=== PATIENT | female | born 1980 | race Caucasian/White ===

== ENCOUNTER 2016-07-13 02:09 | Inpatient (IN) | payer MEDICAID ==
[~2016-07-13] VITALS: Ht 157.5 cm; Wt 64.4 kg
[2016-07-13] VITALS (7 sets, daily range): BP systolic 121–149; BP diastolic 75–97; PULSE 83–100; RESP 16–20; TEMP 97.1–98.9; O2SAT 94–99
--- NOTE | 2016-07-13 02:15 | NUR ---
Patient to ER bed 5 to gown for evaluation. Side rails up.
--- NOTE | 2016-07-13 02:16 | NUR ---
Pt in bed 5 with c/o nausea x 3 days. also c/o generalized pain and withdrawal symptoms. Dr Frida gamez.
[2016-07-13] MEDS ORDERED: NACL 0.9% 1,000 ML IV ONE (02:17)
--- NOTE | 2016-07-13 02:19 | NUR ---
ER at bedside examining patient.
[2016-07-13] MEDS ORDERED: MAG HYDROX/AL HYDROX/SIMETH 30 ML, BELLADONNA ALKALOIDS/PHENOBARB 10 ML, LIDOCAINE VISC... PO ONE ×3 (02:30)
[2016-07-13] MEDS ORDERED: ONDANSETRON HCL 4 MG/2 ML VIAL IVP ONE (02:30)
[2016-07-13] MEDS ORDERED: HYDROmorphone 2 MG/ML VIAL IM ONE (02:45)
[2016-07-13 02:50] LABS: BILIRUBIN,URINE 2+ (NEGATIVE); BLOOD, URINE 1+ (NEGATIVE); CLARITY/URINE CLOUDY (CLEAR); COLOR,URINE YELLOW (YELLOW); GLUCOSE,URINE NEGATIVE (NEGATIVE); KETONES,URINE 1+ (NEGATIVE); LEUKOCYTE ESTERASE ,URINE 1+ (NEGATIVE); NITRITE, URINE NEGATIVE (NEGATIVE); PROTEIN URINE 2+ (NEGATIVE)
[2016-07-13 02:53] LABS: UROBILINOGEN,URINE >=8 (0.2-1.0)
--- NOTE | 2016-07-13 02:55 | NUR ---
# 22 gauge angiocath placed to left wrist. Use of asceptic technique. Opsite placed over site. Blood return noted. Blood for lab drawn from site. Flushed with 10 cc of normal saline. No evidence of infiltration noted. Patient tolerated well.
[2016-07-13 02:56] LABS: BASOPHILS % (AUTO) 0.6 % (0.0-2.0); CALCIUM 8.8 mg/dL (8.4-11.0); CREATININE 0.85 mg/dL (0.55-1.30); EOSINOPHILS % (AUTO) 0.4 % (0.0-4.0); HEMATOCRIT 37.5 % (36-48); HEMOGLOBIN 12.5 g/dL (12.0-16.0); LYMPHOCYTES # (AUTO) 0.9 K/uL (1.0-5.5); LYMPHOCYTES % (AUTO) 25.3 % (20.5-51.5); MEAN CORPUSCULAR HEMOGLOBIN 29 pg (27-31); MEAN CORPUSCULAR HGB CONC 33 % (32-36); MEAN CORPUSCULAR VOLUME 88 fL (79.0-98.0); MONOCYTES # (AUTO) 0.3 K/uL (0.0-1.0); MONOCYTES % (AUTO) 8.2 % (1.7-9.3); NEUTROPHILS # (AUTO) 2.3 K/uL (1.8-7.7); NEUTROPHILS % (AUTO) 65.5 % (40.0-70.0); PLATELET COUNT (AUTO) 65 K/uL (130-430); POTASSIUM 3.5 mmol/L (3.5-5.1); RED BLOOD CELL COUNT(AUTO) 4.26 MIL/uL (4.2-6.2); RED CELL DISTRIBUTION WIDTH 19.3 % (9.0-15.0); WHITE BLOOD COUNT (AUTO) 3.5 K/uL (4.8-10.8)
[2016-07-13 03:00] LABS: BARBITURATE, URINE NEGATIVE (NEG <=200); BENZODIAZEPINE, URINE POSITIVE (NEG <=150); COCAINE, URINE NEGATIVE (NEG <=150); METHAMPHETAMINES SCREEN,URINE NEGATIVE (NEG <=500); URINE AMPHETAMINE NEGATIVE (NEG <=500); URINE METHADONE POSITIVE (NEG <=200)
[2016-07-13 03:00] LABS: ALBUMIN 4.7 g/dL (3.4-4.8); TOTAL BILIRUBIN 3.2 mg/dL (0.0-1.0); TOTAL PROTEIN, SERUM 8.7 g/dL (6.4-8.3)
[2016-07-13 03:01] LABS: CANNABINOID, URINE NEGATIVE (NEG <=50); OPIATE, URINE POSITIVE (NEG <=100); PHENCYCLIDINE SCREEN,URINE NEGATIVE (NEG <=25); UR TRICYCLIC ANTIDEPRESSANTS NEGATIVE (NEG <=300); URINE OXYCODONE SCREEN NEGATIVE (NEG <=100); URINE PROPOXYPHENE SCREEN NEGATIVE (NEG <=300)
[2016-07-13 03:16] LABS: BACTERIA,URINE MANY /HPF (None Seen); MUCUS,URINE None Seen /LPF (None Seen)
[2016-07-13] MEDS ORDERED: FOLIC ACID 1 MG, THIAMINE HCL 100 MG, MAGNESIUM SULFATE 1 GM, MVI 10 ML in NACL 0.9% 1,... IV ONE (03:30)
[2016-07-13] MEDS ORDERED: LORazepam 2 MG/ML VIAL (FOR ER USE) IVP ONE (03:30)
--- NOTE | 2016-07-13 03:32 | NUR ---
Medication given as per MD ordered tolerated well.
[2016-07-13] MEDS ORDERED: THIAMINE HCL 100 MG/ML VIAL ONE (03:42)
[2016-07-13] MEDS ORDERED: MAGNESIUM SULFATE 1 GM/2 ML VIAL ONE (03:42)
[2016-07-13] MEDS ORDERED: FOLIC ACID 5 MG/ML VIAL IV ONE (03:42)
[2016-07-13] MEDS ORDERED: MVI 10 ML VIAL IV ONE (03:50)
--- NOTE | 2016-07-13 04:19 | NUR ---
Patient will be admitted to care of Dr Faria. Admitted to TELE unit. Will go to room 129 B . Belongings list completed. Summary report printed. Report given at bedside.
--- NOTE | 2016-07-13 04:33 | NUR ---
ADMIT NOTE Received pt from ER to the floor with a diagnosis of ACUTE PANCREATITIS. Admission process initiated. patient oriented to pain management, safety and call light-teach back done.
--- NOTE | 2016-07-13 04:50 | NUR ---
CONSULTATION PAGED PRIORITY: ROUTINE REASON FOR CONSULTATION:PANCREATITIS WAS CONSULT CALLED:Y PERSON WHO WAS NOTIFIED:ZENOBIA CONSULTING PHYSICIAN:SHARYN LIMA (ANSHUL LEE DIRECTOR OF CAREER RESOURCES) MEDICAL REVIEWER SPECIALTY:GI MEDICAL REVIEWER PHONE NUMBER:[phone]
[2016-07-13] MEDS ORDERED: FAMOTIDINE PF 20 MG/2 ML VIAL IVP ONE (06:15)
[2016-07-13] MEDS: LORazepam 2 MG/ML VIAL IVP PRN ×4 (06:17→22:57)
[2016-07-13] MEDS: NORMAL SALINE 5 ML DISP.SYRIN IVF SCH ×3 (06:18→22:08)
[2016-07-13] MEDS: ONDANSETRON HCL 4 MG/2 ML VIAL IVP PRN ×4 (06:53→22:22)
[2016-07-13] MEDS: MORPHINE 4 MG/ML INJ. SYRINGE IVP PRN ×4 (06:54→22:22)
--- NOTE | 2016-07-13 07:30 | NUR ---
OPENING NOTE PATIENT IS LYING IN BED, DROWSY. REPORTS PAIN AND NAUSEA. NO SIGNS OF DISTRESS
[2016-07-13 09:44] LABS: INR 1.1 (0.8-1.2); PROTHROMBIN TIME 11.8 SECS (9.5-12.5)
--- NOTE | 2016-07-13 11:00 | NUR ---
PATIENT IS REPORTING PAIN, MEDICATED FOR PAIN AND NAUSEA.
--- NOTE | 2016-07-13 13:00 | NUR ---
PATIENT IS ASLEEP. REPORTS MILD PAIN WHEN WOKEN FOR ASSESSMENT
--- NOTE | 2016-07-13 14:00 | NUR ---
PATIENT MEDICATED WITH ATIVAN. REPORTING PAIN AND NAUSEA
--- NOTE | 2016-07-13 15:30 | NUR ---
PT NOTED TO HAVE ELEVATED HR, 120-130. WHEN ASSESSED PATIENT WAS SLEEPING. NO SIGNS OF SEIZURE ACTIVITY.
--- NOTE | 2016-07-13 16:00 | NUR ---
PATIENT REPORTS NAUSEA AND PAIN. MEDICATED FOR BOTH
--- NOTE | 2016-07-13 17:58 | NUR ---
PATIENT GIVEN CLEAR LIQUID TRAY. REMAINS VERY LETHARGIC, PALE. REPORTING PAIN.
[2016-07-13] MEDS ORDERED: cefTRIAXone 1 GM in D5W 50 ML IV ONE (18:45)
--- NOTE | 2016-07-13 19:40 | NUR ---
pm notes pt resting with eyes closed but easily arousable. breathing even and unlabored on room air, no s/s of distress at this time. seizure precautions in place, bed in low position, call light within reach. bed alarm on.
[2016-07-13] MEDS ORDERED: cefTRIAXone 1 GM VIAL ONE (20:50)
--- NOTE | 2016-07-13 21:46 | NUR ---
paging MD per house steward/stewardess, Donya, ask MD for blood cultures before antibiotic is given. paging .
[2016-07-13] MEDS: NITROFURANTOIN MONOHYD/M-CRYST 100 MG CAPSULE PO SCH (22:13)
--- NOTE | 2016-07-13 22:33 | NUR ---
new orders stated pt has UTI but okay to draw blood cultures before giving antibiotics. orders in place, pt aware.
[2016-07-14] MEDS: FAMOTIDINE PF 20 MG/2 ML VIAL IVP PRN ×2 (00:33→08:48)
[2016-07-14] MEDS: LORazepam 2 MG/ML VIAL IVP PRN ×5 (01:27→16:49)
--- NOTE | 2016-07-14 02:22 | NUR ---
talking to self per warehouse distribution associate, pt was talking to self. pt stated she had "a very vivid dream." pt now sitting up in bed, made pt comfortable and fixed her blankets. all needs being met, bed alarm on. call light within reach.
[2016-07-14] MEDS: MORPHINE 4 MG/ML INJ. SYRINGE IVP PRN ×3 (02:38→15:44)
[2016-07-14] MEDS: ONDANSETRON HCL 4 MG/2 ML VIAL IVP PRN ×3 (02:38→15:42)
--- NOTE | 2016-07-14 03:25 | NUR ---
agitated pt appeared to be agitated and anxious, stated she wanted to drink juice and go home. reoriented pt to place and reminded her why she is npo. pt stated "oh yeah, im in [place] and my stomach pain hasn't gone away." made pt comfortable. pt now resting. RNKeysha charting outside pt's room. bed alarm on. safety measures in place. call light within reach.
--- NOTE | 2016-07-14 03:50 | NUR ---
REORIENTED PT/ATIVAN PT ASKED IF WE WERE"ACTING NURSES." EXPLAINED TO PT WE ARE A REAL HOSPITAL AND REMINDED HER WHY SHE CAME IN. ATIVAN GIVEN ORDERED FOR AGITATION. FALL RISK PRECAUTIONS IN PLACE, CALL LIGHT WITHIN REACH.
[2016-07-14 03:53] VITALS: BP 153/102; PULSE 110; RESP 18; TEMP 98.8; O2SAT 95
--- NOTE | 2016-07-14 04:48 | NUR ---
Dr. Faria aware of agitation/trying to go home MD ordered Haldol 0.5mg IM now. order read back and verified. order in place.
[2016-07-14] MEDS ORDERED: HALOPERIDOL LACTATE 5 MG/ML VIAL IM ONE (05:00)
[2016-07-14] MEDS: NORMAL SALINE 5 ML DISP.SYRIN IVF SCH ×3 (05:00→21:43)
--- NOTE | 2016-07-14 06:32 | NUR ---
CLOSING NOTES PATIENT IS RESTLESS, AGITATED, AND COMPLAINS OF PAIN. BED ALARM IS ON. PATIENT HAS BEEN MEDICATED. PATIENT REQUIRED ONE TO ONE FOR THE LAST TWO HOURS. SAFETY MEASURES IN PLACE. BED IN LOWEST POSITION, CALL LIGHT WITHIN REACH, WILL GIVE REPORT TO DAY SHIFT NURSE.
--- NOTE | 2016-07-14 07:29 | NUR ---
OPENING NOTE PATIENT IS AWAKE, CONFUSED. EYES WIDE OPEN WITH SLIGHT NYSTAGMUS. PATIENT IS OBSESSING OVER MOVING PARTS ON HER BED AND SAYING SHE NEEDS TO TAKE THEM ALL OFF.
[2016-07-14 07:40] LABS: BASOPHILS % (AUTO) 0.9 % (0.0-2.0); EOSINOPHILS # (AUTO) 0.1 K/uL (0.0-0.4); EOSINOPHILS % (AUTO) 2.2 % (0.0-4.0); HEMOGLOBIN 10.8 g/dL (12.0-16.0); LYMPHOCYTES # (AUTO) 0.9 K/uL (1.0-5.5); LYMPHOCYTES % (AUTO) 31.6 % (20.5-51.5); MEAN CORPUSCULAR HEMOGLOBIN 29 pg (27-31); MEAN CORPUSCULAR HGB CONC 33 % (32-36); MEAN CORPUSCULAR VOLUME 89 fL (79.0-98.0); MONOCYTES # (AUTO) 0.2 K/uL (0.0-1.0); MONOCYTES % (AUTO) 7.7 % (1.7-9.3); NEUTROPHILS # (AUTO) 1.5 K/uL (1.8-7.7); NEUTROPHILS % (AUTO) 57.6 % (40.0-70.0); PLATELET COUNT (AUTO) 51 K/uL (130-430); RED BLOOD CELL COUNT(AUTO) 3.71 MIL/uL (4.2-6.2); RED CELL DISTRIBUTION WIDTH 18.8 % (9.0-15.0); WHITE BLOOD COUNT (AUTO) 2.7 K/uL (4.8-10.8)
--- NOTE | 2016-07-14 07:52 | NUR ---
PATIENT MOVED TO ROOM 121A FOR CLOSER OBSERVATION. ALL BELONGINGS BROUGHT TO NEW BEDSIDE. PATIENT IS CURRENTLY SITTING UP IN BED.
[2016-07-14 08:00] VITALS: BP 154/113; PULSE 118; RESP 22; TEMP 98; O2SAT 98
[2016-07-14 08:12] LABS: ALBUMIN 4.4 g/dL (3.4-4.8); BILIRUBIN,DIRECT 1.4 mg/dL (0.0-0.3); CALCIUM 9.1 mg/dL (8.4-11.0); CREATININE 0.84 mg/dL (0.55-1.30); POTASSIUM 3.2 mmol/L (3.5-5.1); TOTAL BILIRUBIN 2.7 mg/dL (0.0-1.0); TOTAL PROTEIN, SERUM 7.9 g/dL (6.4-8.3)
--- NOTE | 2016-07-14 08:12 | NUR ---
abdominal us in progredd. bp noted to be 154/113. dr kahn paged and immediately returned call. orders for detox antihypertensive protocol given.
[2016-07-14] MEDS: cloNIDine HCL 0.1 MG TABLET PO SCH ×5 (08:15→21:42)
[2016-07-14] MEDS: NITROFURANTOIN MONOHYD/M-CRYST 100 MG CAPSULE PO SCH ×2 (08:50→21:38)
--- NOTE | 2016-07-14 09:48 | NUR ---
PATIENT MEDICATED PER ORDERS. PATIENT OFTEN REACHES OUT IN TO THE AIR TO SEEMINGLY GRAB THINGS. WHEN ASKED WHAT SHE SAW PATIENT REPLIED WITH INCOHERENT MUMBLES. PATIENT DID SAY THAT SHE IS SEEING THINGS. 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
--- NOTE | 2016-07-14 11:00 | NUR ---
PATIENT WAS FOUND REACHING IN TO HER PURSE AND PULLING OUT TRAZADONE. PATIENT STATES SHE NEEDS TO SLEEP. MEDICATIONS REMOVED AND STORED IN PHARMACY PER PROTOCOL. PATIENT IS VERY LETHARGIC, SLURRING HER WORDS AND RARELY OPENS HER EYES WHEN SPEAKING
[2016-07-14 11:23] VITALS: BP 141/73; PULSE 100; RESP 16; TEMP 97.8; O2SAT 96
[2016-07-14 12:00] VITALS: BP 131/91; PULSE 99; RESP 18; TEMP 97; O2SAT 98
--- NOTE | 2016-07-14 12:00 | NUR ---
PATIENT IS SAYING HER IS COMING TO GET HER. HE IS IN [place]
--- NOTE | 2016-07-14 15:30 | NUR ---
PATIENT INSISTED ON PUTTING ON CLOTHES FROM HOME. OFFERED TO WALK W PATIENT AROUND UNIT INSTEAD. WE WALKED THREE LAPS THEN BACK TO ROOM
[2016-07-14 16:00] VITALS: BP 127/88; PULSE 94; RESP 18; TEMP 97.2; O2SAT 97
--- NOTE | 2016-07-14 16:56 | NUR ---
PATIENT MEDICATED FOR ANXIETY. PATIENT GAVE HERSELF A SPONGEBATH. NOW IS BACK IN BED
[2016-07-14] MEDS ORDERED: POTASSIUM CHLORIDE 20 MEQ TAB.PRT.SR PO ONE (17:15)
--- NOTE | 2016-07-14 17:32 | NUR ---
CONSULT PSYCH HALLUCINATIONS DR PERDOMO [phone] S/W MIKE FREEDMAN @[phone]
--- NOTE | 2016-07-14 18:39 | NUR ---
patient is resting quietly in bed. medicated with replacement oral potassium per orders.
[2016-07-14 20:00] VITALS: BP 121/70; PULSE 89; RESP 17; TEMP 97.8; O2SAT 99
--- NOTE | 2016-07-14 20:00 | NUR ---
PM Shift Assessment Received patient lying in bed, lethargic but easily arousable, no acute distress noted. Assessment complete, vital signs stable, no complain of pain at this time. Plan of care discussed with patient, she verbalized understanding. Patient is verbally able to make needs known and encouraged to do so. Education provided to call for assistance if she needs to get out of bed. Patient is verbally able to make needs known and encouraged to do so. Call light is within reach, all fall and safety precautions in place, will continue to monitor for change in patient status.
[2016-07-14] MEDS ORDERED: cefTRIAXone 1 GM in D5W 50 ML IV SCH (21:00)
[2016-07-14] MEDS: POTASSIUM CHLORIDE 20 MEQ TAB.PRT.SR PO SCH (21:38)
--- NOTE | 2016-07-14 22:21 | NUR ---
RN Rounds Patient is resting quietly in bed, no acute distress noted. IV noted not flushing, new IV was started to right hand, #22 gauge, good blood return noted and flushes well. Scheduled medications were administered as ordered per MD order. Call light is within reach, all fall and safety precautions in place, will continue to monitor closely.
[2016-07-15] MEDS: LORazepam 2 MG/ML VIAL IVP PRN ×4 (00:04→15:25)
[2016-07-15 00:21] VITALS: BP 125/78; PULSE 83; RESP 18; TEMP 96.9
--- NOTE | 2016-07-15 00:24 | NUR ---
RN Rounds Patient is resting quietly in bed, PRN Ativan was administered for complain of anxiety, will reassess for relief of symptoms. Patient made comfortable in bed, no complain of pain at this time. Call light is within reach, all fall and safety precautions in place, will continue to monitor.
[2016-07-15] MEDS: ONDANSETRON HCL 4 MG/2 ML VIAL IVP PRN ×4 (02:07→18:22)
[2016-07-15] MEDS: MORPHINE 4 MG/ML INJ. SYRINGE IVP PRN ×4 (02:11→18:22)
--- NOTE | 2016-07-15 02:19 | NUR ---
RN Rounds Patient is resting quietly in bed, complained of nausea and pain to abdomen, PRN pain medication was administered per MD order, will reassess for relief of pain. Call light is within reach, all fall and safety precautions in place, will continue to monitor.
[2016-07-15 04:25] VITALS: BP 120/88; PULSE 85; RESP 16; TEMP 96.9; O2SAT 98
--- NOTE | 2016-07-15 04:32 | NUR ---
RN Rounds Patient is resting quietly in bed, no acute distress noted. Noted ambulating with assistance of SALES SOLUTIONS ASSOCIATE around nurses station and safely back to bed. Call light is within reach, all fall and safety precautions in place, will continue to monitor.
--- NOTE | 2016-07-15 05:00 | NUR ---
Patients Own Medications Direct observer in patient's room noted patient taking medications out of her purse and informed RN. Patient was asked if she had any medications, she stated she did not. Education provided on the importance of not having or taking medications at the bedside as they can interfere with scheduled medications. Patient fell asleep, RN and Charge Nurse opened purse and pulled out two bottles of prescriptions medications which were confiscated for safety. Medications were sealed in an envelope and safely locked in pharmacy for safekeeping. Patient was informed by RN in the presence of Charge Nurse, of the dangers of double dosing and reminded that she will receive her medications upon discharge. She verbalized understanding.
[2016-07-15] MEDS: NORMAL SALINE 5 ML DISP.SYRIN IVF SCH ×3 (05:32→21:20)
[2016-07-15 06:43] LABS: ALBUMIN 4.2 g/dL (3.4-4.8); CALCIUM 9.5 mg/dL (8.4-11.0); CREATININE 0.95 mg/dL (0.55-1.30); TOTAL BILIRUBIN 2.6 mg/dL (0.0-1.0); TOTAL PROTEIN, SERUM 7.9 g/dL (6.4-8.3)
[2016-07-15 06:56] LABS: HEMATOCRIT 34.5 % (36-48); HEMOGLOBIN 11.2 g/dL (12.0-16.0); MEAN CORPUSCULAR HEMOGLOBIN 30 pg (27-31); MEAN CORPUSCULAR HGB CONC 33 % (32-36); MEAN CORPUSCULAR VOLUME 91 fL (79.0-98.0); PLATELET COUNT (AUTO) 52 K/uL (130-430); RED BLOOD CELL COUNT(AUTO) 3.79 MIL/uL (4.2-6.2); RED CELL DISTRIBUTION WIDTH 19.4 % (9.0-15.0)
[2016-07-15 07:07] LABS: WHITE BLOOD COUNT (AUTO) 3.3 K/uL (4.8-10.8)
--- NOTE | 2016-07-15 07:20 | NUR ---
RN Rounds Patient is resting quietly in bed, no acute distress noted. Patient is stable, all needs met throughout shift. SBAR report endorsed to AM nurse at bedside.
[2016-07-15 07:46] LABS: BAND % (MANUAL) 0 % (0-6); LYMPHOCYTES % (MANUAL) 33 % (20-46)
[2016-07-15 07:47] LABS: ATYPICAL LYMPHOCYTES % 0 % (0-0); BASOPHILS % (MANUAL) 0 % (0-2); EOSINOPHILS % (MANUAL) 3 % (0-7); MONOCYTES % (MANUAL) 6 % (0-11)
--- NOTE | 2016-07-15 07:59 | NUR ---
AM ROUNDS: No s/s of distress noted. Patient educated on safety precautions. Will continue to monitor.
[2016-07-15 08:20] VITALS: BP 119/72; PULSE 77; RESP 20; TEMP 97.4; O2SAT 96
[2016-07-15] MEDS: NITROFURANTOIN MONOHYD/M-CRYST 100 MG CAPSULE PO SCH ×2 (08:22→21:18)
[2016-07-15] MEDS: POTASSIUM CHLORIDE 20 MEQ TAB.PRT.SR PO SCH (08:23)
[2016-07-15] MEDS: cloNIDine HCL 0.1 MG TABLET PO SCH ×4 (08:23→21:19)
--- NOTE | 2016-07-15 09:59 | NUR ---
PATIENT RESTING: Patient resting quietly. No acute distress noted. Vital signs within normal range.
[2016-07-15 11:49] VITALS: BP 106/72; PULSE 92; RESP 18; TEMP 98.4; O2SAT 95
--- NOTE | 2016-07-15 11:55 | NUR ---
Psych consult follow up Call was placed to Dr Ventura's office. Spoke with Mandy who stated that she is unaware if Dr Ventura received the consult d/t being after hours when the consult was called. Information given again. Will follow up as needed.
--- NOTE | 2016-07-15 12:03 | NUR ---
PATIENT RESTING: Patient resting quietly. No acute distress noted. Vital signs within normal range.
--- NOTE | 2016-07-15 14:34 | NUR ---
PATIENT RESTING: Patient resting quietly. No acute distress noted. Vital signs within normal range.
[2016-07-15] MEDS ORDERED: FAMOTIDINE 20 MG TABLET PO ONE (14:45)
--- NOTE | 2016-07-15 15:17 | NUR ---
Social Service Note: CAR SHUNTER met with pt and physician at bedside; pt states that she lives at home with her and 5 children (ages 16-1). Pt states that her is "on vacation with the children to visit his mother". Pt's nurse states that was at bedside this morning during shift change. [facility] has placed 2 phone calls to pt's , Karson ([phone]); CAR SHUNTER has left a message both times. CAR SHUNTER wants to speak with pt's to confirm pt's discharge plan. Pt states that she has not been to therapy/rehabilitation due to her insurance. Pt states that she might be open to rehabilitation this time; CAR SHUNTER will provide pt with resources for outpatient/inpatient rehabilitation programs. Pt will need to start contacting rehabilitation programs to see which one accept pt's insurance. Pt is not currently on a 5150 hold and would need to go to a rehabilitation program voluntary. CAR SHUNTER spoke with pt about making phone calls on her own and pt appeared unwilling to go to rehabilitation. Pt is ambivalent about her drinking; pt states that she "doesn't drink at all" and then states "that she goes out to drink with friends when her comes home from work". [facility] has provided pt with substance abuse treatment facilities and outpatient mental health providers. [facility] has encouraged pt to start making phone calls to find an accepting rehabilitation program.
--- NOTE | 2016-07-15 16:03 | NUR ---
PATIENT RESTING: Patient resting quietly. No acute distress noted. Vital signs within normal range.
--- NOTE | 2016-07-15 18:27 | NUR ---
CLOSING NOTE: All needs met. Discharge planning for transfer to psych/rehab facility. Will endorse to NOC shift nurse.
--- NOTE | 2016-07-15 19:50 | NUR ---
ROUNDS PATIENT RESTING COMFORTABLY IN BED, NOT IN DISTRESS, VITALS STABLE. DENIES ANY PAIN AND DISCOMFORT AT THIS TIME. ASSESSMENT DONE AND DOCUMENTED. SEE FLOWSHEET. NEEDS ATTENDED TO. SAFETY AND FALL PRECAUTION MEASURES IN PLACED. CALL LIGHT PLACED WITHIN REACH.
[2016-07-15 20:00] VITALS: BP 128/81; PULSE 75; RESP 18; TEMP 98; O2SAT 97
--- NOTE | 2016-07-15 21:00 | NUR ---
MEDICATION DUE MEDICATIONS GIVEN SCHEDULED, TOLERATED WELL. WILL CONTINUE TO MONITOR.
[2016-07-15] MEDS: FAMOTIDINE 20 MG TABLET PO SCH (21:18)
[2016-07-16] VITALS (7 sets, daily range): BP systolic 105–143; BP diastolic 65–100; PULSE 71–89; RESP 16–18; TEMP 97–98.7; O2SAT 98–100
--- NOTE | 2016-07-16 00:10 | NUR ---
PATIENT RESTING: Patient resting quietly. No acute distress noted. Vital signs within normal range.
[2016-07-16] MEDS: LORazepam 2 MG/ML VIAL IVP PRN (02:02)
--- NOTE | 2016-07-16 02:05 | NUR ---
ROUNDS PATIENT ASLEEP, NO SOB NOR PAIN AND DISCOMFORT NOTED, WILL CONTINUE TO MONITOR.
--- NOTE | 2016-07-16 04:00 | NUR ---
PATIENT RESTING: Patient resting quietly. No acute distress noted. Vital signs within normal range.
[2016-07-16] MEDS: MORPHINE 4 MG/ML INJ. SYRINGE IVP PRN (04:04)
--- NOTE | 2016-07-16 06:39 | NUR ---
CLOSING NOTES PATIENT AWAKE, VITALS STABLE, NO PAIN AT THIS TIME. DR. PERDOMO HERE AND SAW PATIENT. ALL NEEDS ATTENDED TO. SAFETY AND FALL PRECAUTION MEASURES MAINTAINED. BED IN LOW AND LOCKED POSITION. CALL LIGHT PLACED WITH PATIENT.
[2016-07-16 06:45] LABS: BASOPHILS % (AUTO) 0.6 % (0.0-2.0); EOSINOPHILS # (AUTO) 0.1 K/uL (0.0-0.4); EOSINOPHILS % (AUTO) 3.7 % (0.0-4.0); HEMATOCRIT 34.8 % (36-48); HEMOGLOBIN 11.5 g/dL (12.0-16.0); LYMPHOCYTES # (AUTO) 1.1 K/uL (1.0-5.5); LYMPHOCYTES % (AUTO) 27.5 % (20.5-51.5); MEAN CORPUSCULAR HEMOGLOBIN 30 pg (27-31); MEAN CORPUSCULAR HGB CONC 33 % (32-36); MEAN CORPUSCULAR VOLUME 92 fL (79.0-98.0); MONOCYTES # (AUTO) 0.5 K/uL (0.0-1.0); MONOCYTES % (AUTO) 11.8 % (1.7-9.3); NEUTROPHILS # (AUTO) 2.2 K/uL (1.8-7.7); NEUTROPHILS % (AUTO) 56.4 % (40.0-70.0); PLATELET COUNT (AUTO) 61 K/uL (130-430); RED BLOOD CELL COUNT(AUTO) 3.79 MIL/uL (4.2-6.2); RED CELL DISTRIBUTION WIDTH 19.1 % (9.0-15.0); WHITE BLOOD COUNT (AUTO) 3.9 K/uL (4.8-10.8)
[2016-07-16 06:55] LABS: ALBUMIN 4.1 g/dL (3.4-4.8); CALCIUM 9.7 mg/dL (8.4-11.0); POTASSIUM 4.3 mmol/L (3.5-5.1); TOTAL BILIRUBIN 1.7 mg/dL (0.0-1.0)
[2016-07-16] MEDS: NORMAL SALINE 5 ML DISP.SYRIN IVF SCH ×3 (06:56→20:37)
--- NOTE | 2016-07-16 07:45 | NUR ---
AM ROUNDS PATIENT SITTING IN CHAIR AT THE BEDSIDE, AWAKE, ALERT AND ORIENTED X4, INFORMED BY INTERNAL CORROSION SPECIALIST AT THAT THE PATIENT'S IV SITE IS BLEEDING, DISCOVERED IV SITE TO BE REMOVED BY PATIENT AT THIS TIME, PATIENT AGREEABLE TO NEW IV SITE, WILL FOLLOW UP, ASSESSMENT COMPLETE, PATIENT IS ASKING ABOUT DISCHARGE AND HER IS AT BEDSIDE, DISCUSSED PLAN OF CARE WITH PATIENT AND HER , PATIENT WANTS TO GO HOME, EXPLAINED TO THE PATIENT THAT WE NEED A DOCTOR'S ORDER TO DISCHARGE HER FIRST, EXPLAINED TO THE PATIENT THAT SHE HAS THE RIGHT TO SIGN OUT AGAINST MEDICAL ADVICE BECAUSE WE CANNOT FORCE HER TO STAY IN THE HOSPITAL, PATIENT AND VERBALIZED UNDERSTANDING AND WILL DISCUSS THIS FURTHER, WILL FOLLOW UP, PATIENT BED IN LOWEST POSITION, THREE SIDE RAILS UP, CALL LIGHT NEXT TO THE PATIENT' HAND, FALL PRECAUTIONS IN PLACE.
[2016-07-16] MEDS: cloNIDine HCL 0.1 MG TABLET PO SCH ×2 (09:17→13:00)
[2016-07-16] MEDS: NITROFURANTOIN MONOHYD/M-CRYST 100 MG CAPSULE PO SCH ×2 (09:17→20:36)
[2016-07-16] MEDS: FAMOTIDINE 20 MG TABLET PO SCH ×2 (09:18→20:36)
--- NOTE | 2016-07-16 09:20 | NUR ---
RN ROUNDS PATIENT SITTING IN BED, DENIES PAIN, EDUCATED ON MEDICATION AND POTENTIAL SIDE EFFECTS, PATIENT VERBALIZED UNDERSTANDING AND TOLERATED WELL AT THIS TIME, PATIENT ASKING ABOUT HER HOME MEDICATIONS AND STATES THAT THEY WERE SENT TO PHARMACY BUT SHE WAS NOT SURE, WILL FOLLOW UP WITH PHARMACY REGARDING THIS, PATIENT STILL NEEDS AN IV SITE, CHARGE NURSE ADRIANE TO ATTEMPT IV INSERTION, NO OTHER NEEDS AT THIS TIME, BED IN LOWEST POSITION, PATIENT REFUSES BED ALARM AT THIS TIME, PATIENT IS AMBULATORY WITH STEADY GAIT AT THIS TIME, WILL CONTINUE TO MONITOR AND INTERVENE NEEDED, BED IS CLOSED TO NURSES STATION, CALL LIGHT NEXT TO THE PATIENT'S HAND.
--- NOTE | 2016-07-16 11:30 | NUR ---
RN ROUNDS PATIENT RESTING, DENIES PAIN, CALM AT THIS TIME, ZULY ORTHOPEDIC NURSE AT THE BEDSIDE AT THIS TIME, NO OTHER NEEDS AT THIS TIME, BED IN LOWEST POSITION, THREE SIDE RAILS UP, BED CLOSE TO NURSE'S STATION, CALL LIGHT NEXT TO THE PATIENT'S HAND, FALL, SEIZURE AND ASPIRATION PRECAUTIONS IN PLACE.
--- NOTE | 2016-07-16 11:47 | NUR ---
Social Service Note: FASHION CONSULTANT SALES met with pt at bedside to discuss pt's dc plans; FASHION CONSULTANT SALES read in progress notes that pt stated to psychiatrist that she found a rehab program. FASHION CONSULTANT SALES asked pt about the rehab program. Pt states "I didn't tell him that exactly", "I am trying to find a rehab, I have made a few calls". FASHION CONSULTANT SALES asked pt about her children; pt states that she has 5 children; when asked their ages pt stated "16, 15, 14, 13, 8, 1". FASHION CONSULTANT SALES alerted pt that she listed off 6 ages, pt stated "I sometimes get mixed up". FASHION CONSULTANT SALES asked pt what her children's names were; pt stated "I don't want to participate further". Pt asked FASHION CONSULTANT SALES to leave and stated that she did not want to talk further with FASHION CONSULTANT SALES. FASHION CONSULTANT SALES was called back to pt's room per pt's request; pt stated that she wanted to provide FASHION CONSULTANT SALES with "contact information"; FASHION CONSULTANT SALES asked pt where the contact information was for; pt stated her "new home". Pt stated the new contact information is: "[address], [place] [address]". Pt initially said she was going to "[place], [place]" then changed her answer to "[place], [place]". FASHION CONSULTANT SALES spoke with pt about her alcohol use; pt states that she drinks 1-2 drinks a day; usually wine or margaritas. Pt states that she walks to the local bar close to her house. 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 FASHION CONSULTANT SALES placed call to Child Protection Hotline ([phone]); FASHION CONSULTANT SALES spoke to Katy Leger who states that there is an open case for pt. Katy states that she will alert CPS worker that pt is in the hospital and worker will call FASHION CONSULTANT SALES should there be any further questions/concerns. FASHION CONSULTANT SALES will remain available for support and will follow up as needed. FASHION CONSULTANT SALES spoke with pt's nurse to update her of conversation and asked pt's nurse to speak with the physician about advancing pt's diet.
--- NOTE | 2016-07-16 12:00 | NUR ---
DR ORELLANA SPOKE WITH DR ORELLANA, INFORMED THAT PATIENT PULLED OUT IV SITE AND DR ORELLANA STATED PATIENT DOES NOT NEED AN IV SITE IF ATTEMPTS FOR RE INSERTION ARE UNSUCCESSFUL, ALSO ORDERED TO ADVANCE DIET TOLERATED, WILL FOLLOW UP.
--- NOTE | 2016-07-16 13:30 | NUR ---
RN ROUNDS PATIENT RESTING IN BED, DENIES PAIN, STATES SHE IS HAVING NAUSEA AND WOULD LIKE TO REST INSTEAD OF TAKING MEDICATION AT THIS TIME, EDUCATED ON BENEFITS OF MEDICATION, PATIENT VERBALIZED UNDERSTANDING AND STILL REFUSED, NO OTHER NEEDS AT THIS TIME, BED IN LOWEST POSITION, BED CLOSE TO NURSE'S STATION, THREE SIDE RAILS UP, BED ALARM ON, DEREK MARK AT THE BEDSIDE AT THIS TIME, CALL LIGHT NEXT TO THE PATIENT'S HAND, FALL, ASPIRATION AND SEIZURE PRECAUTIONS IN PLACE.
--- NOTE | 2016-07-16 14:00 | NUR ---
PAGED DR ORELLANA REGARDING MULTIPLE ATTEMPTS TO GET AN IV SITE AND FOR ORDERS TO CHANGE MEDICATIONS TO PO.
--- NOTE | 2016-07-16 16:20 | NUR ---
DR REYNA JEROME WILL FOLLOW UP WITH ANY NEW ORDERS.
[2016-07-16] MEDS ORDERED: LORazepam 1 MG TABLET PO PRN ×2 (16:30→22:15)
[2016-07-16] MEDS ORDERED: FOLIC ACID 1 MG TABLET PO ONE (16:45)
[2016-07-16] MEDS ORDERED: THIAMINE HCL 100 MG TABLET PO ONE (16:45)
--- NOTE | 2016-07-16 17:17 | NUR ---
RN ROUNDS PATIENT RESTING IN BED, AWAKE, DENIES PAIN, PATIENT REQUESTING NURSE TO RE ATTEMPT IV PLACEMENT AT THIS TIME, WILL FOLLOW UP, EDUCATED PATIENT ON NEW MEDICATIONS AND POTENTIAL SIDE EFFECTS, PATIENT VERBALIZED UNDERSTANDING AT THIS TIME, AND TOLERATED WELL, JELLO, ICE CHIPS AND CRANBERRY JUICE GIVEN PER PATIENT REQUEST, NO OTHER NEEDS AT THIS TIME, BED IN LOWEST POSITION, THREE SIDE RAILS UP, BED ALARM ON, DEREK HAT LACER AT THE BEDSIDE AT THIS TIME, FALL, ASPIRATION AND SEIZURE PRECAUTIONS IN PLACE.
--- NOTE | 2016-07-16 18:41 | NUR ---
CLOSING NOTES PATIENT RESTING IN BED, EYES CLOSED, BREATHING IS EVEN AND UNLABORED, NO SIGNS OF DISTRESS, ALL NEEDS MET, WILL ENDORSE REPORT TO NOC SHIFT NURSE, WILL ENDORSE PATIENT REQUEST FOR NEW IV SITE, PATIENT BED IN LOWEST POSITION, THREE SIDE RAILS UP, BED ALARM ON, BED CLOSE TO NURSE'S STATION, FALL, ASPIRATION AND SEIZURE PRECAUTIONS IN PLACE, WENDY MARK AT THE BEDSIDE AT THIS TIME.
[2016-07-16] MEDS: ONDANSETRON HCL 4 MG/2 ML VIAL IVP PRN (19:29)
--- NOTE | 2016-07-16 20:00 | NUR ---
Rounds Received patient resting in bed, eyes closed, aroused to light stimulation. Patient denies any acute distress or pain at this time. Vital signs stable. Breathing even and unlabored on room air. IV site patent/clean/dry. Educated patient on use of call light for assistance and fall precautions, patient verbalized understanding. Call light in hand, fall precautions in place, will continue to monitor. Racheal MARK in room, sitter for patient in bed B.
--- NOTE | 2016-07-16 21:27 | NUR ---
Jonelle LUA P[facility]ED [facility] AT [phone] SPOKE WITH NICHOLAS.
--- NOTE | 2016-07-16 21:45 | NUR ---
MD Communication Spoke with Dr. Faria on telephone, regarding patient's c/o of abdominal pain, patient requesting IV pain mediation. Orders received for Ultram PO. Will enter and carry out.
--- NOTE | 2016-07-16 22:00 | NUR ---
Rounds Patient resting in bed with eyes closed. No distress noted, breathing even and unlabored. Call light in hand, fall precautions in place. Sitter in room. Will continue to monitor.
[2016-07-16] MEDS ORDERED: LORazepam 2 MG/ML VIAL IVP ONE (22:15)
[2016-07-16] MEDS: traMADol HCL HCL 50 MG TABLET (ULTRAM) PO PRN (22:48)
--- NOTE | 2016-07-17 | NUR ---
Rounds Patient resting in bed with eyes closed, easily aroused. Patient denies any distress or pain at this time. Patient denies any needs. Breathing even and unlabored. Sitter in room. Call light in hand, will continue to monitor.
--- NOTE | 2016-07-17 02:00 | NUR ---
Rounds Patient resting in bed with eyes closed. No distress noted, breathing even and unlabored. Sitter in room. Call light in hand, fall precautions in place, will continue to monitor.
[2016-07-17 04:11] VITALS: BP 133/88; PULSE 69; RESP 17; TEMP 97.1; O2SAT 99
--- NOTE | 2016-07-17 04:22 | NUR ---
Rounds Patient resting in bed awake. Patient denies any acute distress or pain. Medicated patient for anxiety per MD order. Breathing even and unlabored. Sitter at bedside. Will continue to monitor.
[2016-07-17] MEDS: NORMAL SALINE 5 ML DISP.SYRIN IVF SCH ×2 (05:15→13:10)
--- NOTE | 2016-07-17 06:37 | NUR ---
Closing Notes Patient resting in bed with eyes closed, easily aroused. Patient denies any acute distress or pain at this time. Breathing even and unlabored. IV site patent/clean/dry, no S/S infection/infiltration noted. Needs addressed throughout shift. Call light in hand, fall precautions in place. Will continue to monitor for changes and safety, and endorse all patient care/needs to oncoming nurse. Sitter in room.
--- NOTE | 2016-07-17 07:45 | NUR ---
INITIAL NOTES PT IN BED AWAKE, ALERT AND ORIENTED, COMPLAIN OF ABDOMINAL PAIN LIKE STABBING PAIN. WILL MEDICATE.IVL. AMBULATE TO THE BATHROOM. NO ACUTE DISTRESS NOTED. SR ON THE MONITOR. ENC. TO CALL FOR HELP NEEDED. CALL LIGHT IN REACH. WILL MONITOR.
[2016-07-17] MEDS: traMADol HCL HCL 50 MG TABLET (ULTRAM) PO PRN ×2 (07:47→13:11)
[2016-07-17 08:00] VITALS: BP 114/79; PULSE 78; RESP 17; TEMP 97.5; O2SAT 98
[2016-07-17] MEDS: NITROFURANTOIN MONOHYD/M-CRYST 100 MG CAPSULE PO SCH (08:15)
[2016-07-17] MEDS: FAMOTIDINE 20 MG TABLET PO SCH (08:15)
[2016-07-17] MEDS: ONDANSETRON HCL 4 MG/2 ML VIAL IVP PRN ×2 (08:19→13:41)
--- NOTE | 2016-07-17 08:23 | NUR ---
NAUSEA PT COMPLAINS OF NAUSEA AFTER EATING. ZOFRAN GIVEN
[2016-07-17] MEDS ORDERED: THIAMINE HCL 100 MG TABLET PO SCH (09:00)
[2016-07-17] MEDS ORDERED: FOLIC ACID 1 MG TABLET PO SCH (09:00)
--- NOTE | 2016-07-17 10:18 | NUR ---
ROUNDS IN BED, DOING COLORING BOOK. NO DISTRESS NOTED. SITTER AT BEDSIDE. PAIN BETTER AT THIS TIME.
[2016-07-17 12:00] VITALS: BP 119/78; PULSE 91; RESP 21; TEMP 97; O2SAT 99
--- NOTE | 2016-07-17 12:30 | NUR ---
PAIN PT WANTS HER PAIN MEDICATION TO CHANGE TO IV MORPHINE. PER REPORT, DR. ORELLANA AWARE AND ONLY WANTS PT TO HAVE ULTRAM PO.
--- NOTE | 2016-07-17 13:43 | NUR ---
NAUSEA PT NAUSEATED. ZOFRAN GIVEN. PT CLAIMING THAT SHE VOMITED IN THE BATHROOM. INFORM PT NOT TO FLUSH AND CALL THE NURSE IF SHE VOMITED AGAIN.
--- NOTE | 2016-07-17 14:30 | NUR ---
ROUNDS SEEN BY DR. ORELLANA AT BEDSIDE. MD DISCUSSED ABOUT PAIN MEDICATION TO PATIENT AT THIS TIME.
[2016-07-17 14:38] VITALS: Ht 157.5 cm; Wt 64.4 kg
--- NOTE | 2016-07-17 14:48 | NUR ---
Social Service Note: CHURCH ORGANIST spoke with physician at nurses station; pt does not appear motivated to attend treatment; pt is ambivlent about her drinking. CHURCH ORGANIST met with pt at bedside; CHURCH ORGANIST alerted pt that physician would most likely be discharging her. CHURCH ORGANIST asked pt what her dc plan is; pt states that she will call her to pick her up. CHURCH ORGANIST spoke with pt about outpatient rehabilitation for her drinking; pt states that she does not need rehabilitation at this time. [facility] has provided substance abuse treatment facility resources, outpatient mental health resources, and listing of AA meetings to pt's nurse to provide with pt's dc paperwork. Addendum: 07/17/16 at 1556 by Abigail Brock LCSW CHURCH ORGANIST provided substance abuse treatment facilities to pt; pt states that she spoke to her and he would like pt to make an appointment with an outpatient program. CHUCK sat with pt and helped pt call several rehab programs. Pt has also called Dr. Ventura to make an appointment for follow up. Pt states that she plans to follow up with Dr. Ventura. CHURCH ORGANIST will remain available for support and will follow up as needed.
[2016-07-17 15:29] VITALS: BP 119/78; PULSE 91; RESP 18; TEMP 97; O2SAT 98
[2016-07-17] MEDS ORDERED: THIA100T13 PO (15:34)
[2016-07-17] MEDS ORDERED: FAMO20TA8 PO (15:36)
[2016-07-17] MEDS ORDERED: FOLI-43 PO (15:36)
[2016-07-17] MEDS ORDERED: NITR-85 PO (15:37)
[2016-07-17 16:01] VITALS: BP 120/74; PULSE 99; RESP 17; TEMP 97.4; O2SAT 99
--- NOTE | 2016-07-17 16:30 | NUR ---
PER PT HER WILL BE HERE AROUND 1730 TO PICK HER UP.
--- NOTE | 2016-07-17 17:22 | NUR ---
DISCHARGE D/C PT HOME ACCOMPANIED BY . REFUSED TO BE WHEELED OUT. WALK WITH STEADY GAIT. DISCHARGE INSTRUCTION, PRESCRIPTION AND FOLLOW UP CARE DISCUSSED WITH PT. PT VERBALIZE UNDERSTANDING. IVL REMOVED. HOME MEDICATIONS OF TEMAZEPAM, METHADONE AND HYDROCODONE GIVEN BACK TO PT FROM PHARMACY. NO DISTRESS NOTED.
== END 2016-07-17 17:20 | disposition home or self-care (01) | DRG 775 ==
LOC: SED 02:09 → STU 04:06 → EEVIPCON 04:06 → MERGE 04:06 → STU 04:25
PROVIDERS: ADMIT Internal Medicine; ATTEND Internal Medicine
PROC: HZ2ZZZZ Detoxification Services for Substance Abuse Treatment (ICD-10-PCS; principal; 2016-07-13)
DX: F10.239 Alcohol dependence with withdrawal, unspecified (principal); G93.41 Metabolic encephalopathy; K85.20 Alcohol induced acute pancreatitis without necrosis or infection; D61.818 Other pancytopenia; K70.30 Alcoholic cirrhosis of liver without ascites; N39.0 Urinary tract infection, site not specified; F32.9 Major depressive disorder, single episode, unspecified; G89.29 Other chronic pain; F19.19 Other psychoactive substance abuse with unspecified psychoactive substance-induced disorder; K70.10 Alcoholic hepatitis without ascites; B96.20 Unspecified Escherichia coli [E. coli] as the cause of diseases classified elsewhere; F19.10 Other psychoactive substance abuse, uncomplicated; J45.909 Unspecified asthma, uncomplicated; Z85.830 Personal history of malignant neoplasm of bone; Z92.21 Personal history of antineoplastic chemotherapy; Z90.49 Acquired absence of other specified parts of digestive tract
CPT/HCPCS: 36415; 70450-TC; 76700-TC; 80053; 80061; 80076; 80307; 81000-TC; 81025; 82140-TC; 83690-TC; 83735-TC; 84703; 85007; 85025; 85027; 85610-TC; 87040-TC; 87086; 87186-TC; 87230-TC; 93005; 96361; 96365; 96372; 96375; 99285; G0482; J0696; J1170; J1630; J2001; J2060; J2270; J2405; J3411; J3475; J3490; J7030; J7050; J7060

== ENCOUNTER 2017-02-01 20:06 | Emergency (ER) | payer SELFPAY ==
[~2017-02-01] VITALS: Ht 157.5 cm; Wt 54.4 kg
[~2017-02-01 20:06] MED LIST: FAMO20TA8 PO; FOLI-43 PO; NITR-85 PO; THIA100T13 PO
[2017-02-01 20:30] VITALS: BP_SYST 122
--- NOTE | 2017-02-01 20:30 | NUR ---
Pt waiting for avail beds, still with paramedics
--- NOTE | 2017-02-01 22:15 | NUR ---
ER MD Pastor at bedside examining patient.
[2017-02-01] MEDS ORDERED: NACL 0.9% 1,000 ML IV ONE (22:30)
[2017-02-01] MEDS ORDERED: DIPH-TET-PERTUS Vaccine 0.5 ML VIAL (ADACEL) I.M. ONE (22:30)
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
[2017-02-01 23:26] LABS: BASOPHILS % (AUTO) 0.5 % (0.0-2.0); EOSINOPHILS # (AUTO) 0.1 K/uL (0.0-0.4); EOSINOPHILS % (AUTO) 0.6 % (0.0-4.0); HEMATOCRIT 30.8 % (36-48); HEMOGLOBIN 10.4 g/dL (12.0-16.0); LYMPHOCYTES # (AUTO) 2.3 K/uL (1.0-5.5); LYMPHOCYTES % (AUTO) 27.7 % (20.5-51.5); MEAN CORPUSCULAR HEMOGLOBIN 36 pg (27-31); MEAN CORPUSCULAR HGB CONC 34 % (32-36); MEAN CORPUSCULAR VOLUME 105 fL (79.0-98.0); MONOCYTES # (AUTO) 0.6 K/uL (0.0-1.0); MONOCYTES % (AUTO) 6.9 % (1.7-9.3); NEUTROPHILS # (AUTO) 5.4 K/uL (1.8-7.7); NEUTROPHILS % (AUTO) 64.3 % (40.0-70.0); PLATELET COUNT (AUTO) 102 K/uL (130-430); RED BLOOD CELL COUNT(AUTO) 2.92 MIL/uL (4.2-6.2); RED CELL DISTRIBUTION WIDTH 14.3 % (9.0-15.0); WHITE BLOOD COUNT (AUTO) 8.4 K/uL (4.8-10.8)
[2017-02-01 23:30] LABS: ANION GAP 11 (5-15); CALCIUM 8.6 mg/dL (8.4-11.0); CHLORIDE 106 mmol/L (98-107); GLUCOSE 122 mg/dL (70-99); SODIUM SERUM 140 mmol/L (136-145); UREA NITROGEN, BLOOD 12 mg/dL (8-21)
[2017-02-01 23:35] LABS: ALANINE AMINOTRANSFERASE 75 U/L (12-78); ALBUMIN 2.7 g/dL (3.4-4.8); ALCOHOL, BLOOD 267 mg/dL (<10); ASPARTATE AMINOTRANSFERASE 255 U/L (10-37); GFR AFRICAN AMERICAN 81 mL/min (>90); LIPASE 255 U/L (73-393)
[2017-02-01 23:36] LABS: TOTAL BILIRUBIN 12.4 mg/dL (0.0-1.0)
[2017-02-01 23:50] LABS: ACETAMINOPHEN < 1 ug/mL (1-30)
--- NOTE | 2017-02-02 00:10 | NUR ---
# 22 gauge angiocath placed to left hand. Use of asceptic technique. Opsite placed over site. Blood return noted. Flushed with 10 cc of normal saline. No evidence of infiltration noted. Patient tolerated well.
[2017-02-02] MEDS ORDERED: KETOROLAC TROMETHAMINE 30 MG VIAL IVP ONE (00:30)
[2017-02-02] MEDS ORDERED: FOLIC ACID 1 MG, THIAMINE HCL 100 MG, MAGNESIUM SULFATE 1 GM, MVI 10 ML in NACL 0.9% 1,... IV ONE (00:45)
--- NOTE | 2017-02-02 00:45 | NUR ---
SOL Smith at bedside to take patient report.
--- NOTE | 2017-02-02 00:48 | NUR ---
No adverse reactions noted after medication administration. Will continue to monitor.
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
[2017-02-02] MEDS ORDERED: THIAMINE HCL 100 MG/ML VIAL ONE (01:16)
[2017-02-02] MEDS ORDERED: FOLIC ACID 5 MG/ML VIAL IV ONE (01:17)
[2017-02-02] MEDS ORDERED: MVI 10 ML VIAL IV ONE (01:18)
[2017-02-02] MEDS ORDERED: MAGNESIUM SULFATE 1 GM/2 ML VIAL ONE (01:19)
[2017-02-02 01:21] LABS: INR 1.3 (0.8-1.2); PROTHROMBIN TIME 14.6 SECS (9.5-12.5)
--- NOTE | 2017-02-02 01:45 | NUR ---
Patient resting in bed. No acute distress noted at this time.
[2017-02-02] MEDS ORDERED: MORPHINE 2 MG/ML INJ. SYRINGE IVP ONE (03:00)
--- NOTE | 2017-02-02 03:12 | NUR ---
[place] knight in [facility] - 02/02/17 at 0352 by [email or web address] No adverse reactions noted after medication administration. Will continue to monitor.
[2017-02-02 03:22] VITALS: BP_SYST 118
--- NOTE | 2017-02-02 03:22 | NUR ---
Patient given written and verbal discharge instructions and verbalizes understanding. ER MD discussed with patient the results and treatment provided. Patient in stable condition. ID arm band removed. IV catheter removed intact and dressing applied, no active bleeding. Patient educated on pain management and to follow up with PMD. Pain Scale 0/10. Opportunity for questions provided and answered.
--- NOTE | 2017-02-02 03:22 | NUR ---
No adverse reactions noted after medication administration. Will continue to monitor.
--- NOTE | 2017-02-02 03:23 | NUR ---
Transportation arranged. Patient to be taken to [facility] in [place] via Taxi.
[2017-02-03] MEDS ORDERED: FURO80TA86 PO (09:31)
[2017-02-03] MEDS ORDERED: MET10 PO (09:31)
[2017-02-03] MEDS ORDERED: SPIR50TA26 PO (09:31)
== END 2017-02-02 03:22 | disposition home or self-care (01) ==
LOC: SED 20:06
DX: S05.12XA Contusion of eyeball and orbital tissues, left eye, initial encounter (principal); K70.10 Alcoholic hepatitis without ascites; J45.909 Unspecified asthma, uncomplicated; Z90.49 Acquired absence of other specified parts of digestive tract; Y08.89XA Assault by other specified means, initial encounter; Y93.89 Activity, other specified; Y92.89 Other specified places as the place of occurrence of the external cause; Y99.8 Other external cause status
CPT/HCPCS: 36415; 70450; 70486; 71010; 72125; 80053; 81025; 83690; 85025; 85610; 85730; 90471; 90715; 96361; 96365; 96366; 96375; 99285; G0480; G0481; G0482; J1885; J2270; J3411; J3475; J3490; J7030

== ENCOUNTER 2017-02-02 18:17 | Emergency (ER) | payer SELFPAY ==
[~2017-02-02] VITALS: Ht 162.6 cm; Wt 65.8 kg
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
[2017-02-02 18:20] VITALS: BP_SYST 127
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
--- NOTE | 2017-02-02 19:00 | NUR ---
MD Olsen at bedside.
--- NOTE | 2017-02-02 19:07 | NUR ---
Patient is incontent of urine and stool, attempting to change sheets. Patient educated on need to stay in bed due to unsteady gait.
--- NOTE | 2017-02-02 19:09 | NUR ---
Endorsed care to Nelly HOPPER.
--- NOTE | 2017-02-02 19:16 | NUR ---
Accompanied Dr. Li to update pt on discharge plan. Pt was listening attentively and responded to MD appropriately.
[2017-02-02 19:30] VITALS: BP_SYST 122
--- NOTE | 2017-02-02 19:30 | NUR ---
Patient given written and verbal discharge instructions and verbalizes understanding. ER MD Li discussed with patient the results and treatment provided. Patient in stable condition. ID arm band removed. Rx of norco given. Patient educated on pain management and to follow up with PMD. Pain Scale 0/10. Opportunity for questions provided and answered. Patient awaiting for TAXI in the waiting room.
[2017-02-03] MEDS ORDERED: SPIR50TA26 PO (09:31)
[2017-02-03] MEDS ORDERED: FURO80TA86 PO (09:31)
[2017-02-03] MEDS ORDERED: MET10 PO (09:31)
== END 2017-02-02 19:30 | disposition home or self-care (01) ==
LOC: SED 18:17
DX: S00.83XA Contusion of other part of head, initial encounter (principal); J45.909 Unspecified asthma, uncomplicated; Y04.0XXA Assault by unarmed brawl or fight, initial encounter; Y93.89 Activity, other specified; Y92.89 Other specified places as the place of occurrence of the external cause; Y99.8 Other external cause status
CPT/HCPCS: 99283

== ENCOUNTER 2017-02-03 05:37 | Inpatient (IN) | payer MEDICAID ==
[~2017-02-03] VITALS: Ht 157.5 cm; Wt 48.5 kg
[2017-02-03 05:37] VITALS: BP_SYST 107
[2017-02-03] MEDS ORDERED: NACL 0.9% 1,000 ML IV ONE (06:29)
[2017-02-03 07:05] LABS: BASOPHILS # (AUTO) 0.1 K/uL (0.0-0.2); BASOPHILS % (AUTO) 0.9 % (0.0-2.0); EOSINOPHILS % (AUTO) 0.2 % (0.0-4.0); HEMOGLOBIN 12.3 g/dL (12.0-16.0); LYMPHOCYTES # (AUTO) 2.1 K/uL (1.0-5.5); LYMPHOCYTES % (AUTO) 21.6 % (20.5-51.5); MEAN CORPUSCULAR HEMOGLOBIN 34 pg (27-31); MEAN CORPUSCULAR HGB CONC 33 % (32-36); MEAN CORPUSCULAR VOLUME 103 fL (79.0-98.0); MONOCYTES # (AUTO) 0.7 K/uL (0.0-1.0); MONOCYTES % (AUTO) 6.8 % (1.7-9.3); NEUTROPHILS # (AUTO) 6.7 K/uL (1.8-7.7); NEUTROPHILS % (AUTO) 70.5 % (40.0-70.0); PLATELET COUNT (AUTO) 113 K/uL (130-430); RED BLOOD CELL COUNT(AUTO) 3.59 MIL/uL (4.2-6.2); WHITE BLOOD COUNT (AUTO) 9.6 K/uL (4.8-10.8)
[2017-02-03 07:17] LABS: INR 1.4 (0.8-1.2)
[2017-02-03 07:33] LABS: PROTHROMBIN TIME 15.2 SECS (9.5-12.5)
[2017-02-03 07:34] LABS: CALCIUM 9.3 mg/dL (8.4-11.0); CREATININE 1.13 mg/dL (0.55-1.30); POTASSIUM 4.9 mmol/L (3.5-5.1)
[2017-02-03 07:37] LABS: ALBUMIN 3.7 g/dL (3.4-4.8)
[2017-02-03 07:42] LABS: TOTAL BILIRUBIN 19.3 mg/dL (0.0-1.0)
[2017-02-03 08:12] LABS: BARBITURATE, URINE NEGATIVE (NEG <=200); BENZODIAZEPINE, URINE NEGATIVE (NEG <=150); CANNABINOID, URINE NEGATIVE (NEG <=50); COCAINE, URINE NEGATIVE (NEG <=150); METHAMPHETAMINES SCREEN,URINE NEGATIVE (NEG <=500); OPIATE, URINE NEGATIVE (NEG <=100); PHENCYCLIDINE SCREEN,URINE NEGATIVE (NEG <=25); URINE AMPHETAMINE NEGATIVE (NEG <=500); URINE METHADONE NEGATIVE (NEG <=200); URINE OXYCODONE SCREEN NEGATIVE (NEG <=100)
[2017-02-03 08:13] LABS: UR TRICYCLIC ANTIDEPRESSANTS NEGATIVE (NEG <=300); URINE PROPOXYPHENE SCREEN NEGATIVE (NEG <=300)
[2017-02-03] MEDS ORDERED: ONDANSETRON HCL 4 MG/2 ML VIAL IVP ONE (08:15)
[2017-02-03 08:43] LABS: ACETAMINOPHEN < 1 ug/mL (1-30)
[2017-02-03 08:50] LABS: ALCOHOL, BLOOD 206 mg/dL (<10)
[2017-02-03 08:59] LABS: BILIRUBIN,URINE NEGATIVE (NEGATIVE); BLOOD, URINE NEGATIVE (NEGATIVE); CLARITY/URINE CLEAR (CLEAR); COLOR,URINE YELLOW (YELLOW); GLUCOSE,URINE NEGATIVE (NEGATIVE); KETONES,URINE NEGATIVE (NEGATIVE); LEUKOCYTE ESTERASE ,URINE NEGATIVE (NEGATIVE); NITRITE, URINE NEGATIVE (NEGATIVE); PROTEIN URINE NEGATIVE (NEGATIVE); UROBILINOGEN,URINE 0.2 (0.2-1.0)
[2017-02-03] MEDS ORDERED: PROMETHAZINE HCL 25 MG/ML AMP IVP ONE (09:15)
[2017-02-03] MEDS ORDERED: MORPHINE 2 MG/ML INJ. SYRINGE IVP ONE (09:15)
[2017-02-03] MEDS ORDERED: FOLIC ACID 1 MG, THIAMINE HCL 100 MG, MAGNESIUM SULFATE 1 GM, MVI 10 ML in NACL 0.9% 1,... IV ONE (09:15)
[2017-02-03] MEDS ORDERED: MET10 PO (09:31)
[2017-02-03] MEDS ORDERED: FURO80TA86 PO (09:31)
[2017-02-03] MEDS ORDERED: SPIR50TA26 PO (09:31)
[2017-02-03 10:08] VITALS: BP_SYST 109
[2017-02-03] MEDS: NACL 0.9% 1,000 ML IV SCH ×2 (10:45→17:59)
[2017-02-03] MEDS: MORPHINE 2 MG/ML INJ. SYRINGE IVP PRN ×3 (12:09→20:01)
[2017-02-03] MEDS: PENTOXIFYLLINE 400 MG TABLET.SA (TRENtal) PO SCH ×2 (12:24→17:59)
[2017-02-03 12:39] VITALS: BP_SYST 109
[2017-02-03] MEDS ORDERED: PANTOPRAZOLE SODIUM 40 MG/VIAL (PROTONIX) IVP ONE (13:00)
[2017-02-03] MEDS: ONDANSETRON HCL 4 MG/2 ML VIAL IVP PRN ×2 (13:51→20:01)
[2017-02-03 16:16] VITALS: BP_SYST 133
[2017-02-03 16:33] LABS: HEMATOCRIT 26.7 % (36-48); HEMOGLOBIN 9.1 g/dL (12.0-16.0)
[2017-02-03] MEDS: chlordiazePOXIDE HCL 25 MG CAPSULE PO SCH ×2 (16:40→20:01)
[2017-02-03 16:58] LABS: HCG,QUAL RESULT NEGATIVE (NEGATIVE)
[2017-02-03] MEDS: METOCLOPRAMIDE HCL 10 MG/2 ML VIAL IVP PRN (18:57)
[2017-02-03 20:00] VITALS: BP_SYST 108
[2017-02-03 23:34] VITALS: BP_SYST 128
[2017-02-04] MEDS: MORPHINE 2 MG/ML INJ. SYRINGE IVP PRN ×6 (00:09→20:11)
[2017-02-04] MEDS: METOCLOPRAMIDE HCL 10 MG/2 ML VIAL IVP PRN ×3 (01:04→20:21)
[2017-02-04] MEDS: NACL 0.9% 1,000 ML IV SCH (03:07)
[2017-02-04 03:49] VITALS: BP_SYST 119
[2017-02-04] MEDS: ONDANSETRON HCL 4 MG/2 ML VIAL IVP PRN ×2 (04:06→17:07)
[2017-02-04 07:47] LABS: BASOPHILS % (AUTO) 0.2 % (0.0-2.0); LYMPHOCYTES # (AUTO) 1.2 K/uL (1.0-5.5); MEAN CORPUSCULAR HEMOGLOBIN 35 pg (27-31); MEAN CORPUSCULAR HGB CONC 35 % (32-36); MEAN CORPUSCULAR VOLUME 101 fL (79.0-98.0); MONOCYTES # (AUTO) 0.3 K/uL (0.0-1.0); NEUTROPHILS % (AUTO) 58.2 % (40.0-70.0); WHITE BLOOD COUNT (AUTO) 3.6 K/uL (4.8-10.8)
[2017-02-04 08:00] VITALS: BP_SYST 114
[2017-02-04 08:02] LABS: EOSINOPHILS % (AUTO) 0.5 % (0.0-4.0); HEMOGLOBIN 7.4 g/dL (12.0-16.0); LYMPHOCYTES % (AUTO) 33.2 % (20.5-51.5); MONOCYTES % (AUTO) 7.9 % (1.7-9.3); NEUTROPHILS # (AUTO) 2.1 K/uL (1.8-7.7); RED BLOOD CELL COUNT(AUTO) 2.12 MIL/uL (4.2-6.2); RED CELL DISTRIBUTION WIDTH 13.2 % (9.0-15.0)
[2017-02-04 08:09] LABS: HEMATOCRIT 21.4 % (36-48)
[2017-02-04] MEDS: THIAMINE HCL 100 MG TABLET PO SCH (08:20)
[2017-02-04] MEDS: chlordiazePOXIDE HCL 25 MG CAPSULE PO SCH ×3 (08:21→20:21)
[2017-02-04] MEDS: PANTOPRAZOLE SODIUM 40 MG/VIAL (PROTONIX) IVP SCH (08:21)
[2017-02-04] MEDS: FOLIC ACID 1 MG TABLET PO SCH (08:21)
[2017-02-04] MEDS: PENTOXIFYLLINE 400 MG TABLET.SA (TRENtal) PO SCH ×3 (08:21→17:07)
[2017-02-04 08:30] LABS: ALBUMIN 2.4 g/dL (3.4-4.8); BILIRUBIN,DIRECT 9.3 mg/dL (0.0-0.3); CALCIUM 7.5 mg/dL (8.4-11.0); CREATININE 1.28 mg/dL (0.55-1.30); POTASSIUM 3.2 mmol/L (3.5-5.1); TOTAL BILIRUBIN 14.6 mg/dL (0.0-1.0)
[2017-02-04 09:30] LABS: PLATELET COUNT (AUTO) 43 K/uL (130-430)
[2017-02-04] MEDS ORDERED: POTASSIUM CHLORIDE 40 MEQ, LIDOCAINE JECT 2% PF 100 MG 50 MG in NS 250 ML IV ONE (10:15)
[2017-02-04 10:22] LABS: HEPATITIS A AB, IgM Negative (Negative); HEPATITIS B CORE AB, IgM Negative (Negative); HEPATITIS B SURFACE AG Negative (Negative)
[2017-02-04] MEDS ORDERED: FERROUS SULFATE 325 MG TABLET.DR PO ONE (11:30)
[2017-02-04] MEDS: FERROUS SULFATE 325 MG TABLET.DR PO SCH ×2 (12:05→20:21)
[2017-02-04] MEDS: KCL 20 mEq in D5NS 1000 mL 1,000 ML IV SCH ×2 (12:46→20:24)
[2017-02-04 12:51] VITALS: BP_SYST 104
[2017-02-04 14:07] LABS: TOTAL IRON BIND. CAPACITY 232 ug/dL (250-450)
[2017-02-04 16:35] VITALS: BP_SYST 118
[2017-02-04 20:00] VITALS: BP_SYST 122
[2017-02-05] MEDS: ONDANSETRON HCL 4 MG/2 ML VIAL IVP PRN ×3 (00:15→15:00)
[2017-02-05] MEDS: MORPHINE 2 MG/ML INJ. SYRINGE IVP PRN ×6 (00:16→20:59)
[2017-02-05 02:02] VITALS: BP_SYST 101
[2017-02-05 03:36] VITALS: BP_SYST 120
[2017-02-05] MEDS: KCL 20 mEq in D5NS 1000 mL 1,000 ML IV SCH ×2 (06:35→17:10)
[2017-02-05 07:54] LABS: HEMOGLOBIN 7.4 g/dL (12.0-16.0); MEAN CORPUSCULAR HGB CONC 35 % (32-36); MONOCYTES # (AUTO) 0.2 K/uL (0.0-1.0)
[2017-02-05 08:00] VITALS: BP_SYST 121
[2017-02-05] MEDS ORDERED: PHYTONADIONE 5 MG TABLET PO ONE (08:00)
[2017-02-05 08:19] LABS: BASOPHILS % (AUTO) 0.3 % (0.0-2.0); EOSINOPHILS % (AUTO) 0.8 % (0.0-4.0); LYMPHOCYTES # (AUTO) 0.8 K/uL (1.0-5.5); LYMPHOCYTES % (AUTO) 33.5 % (20.5-51.5); MEAN CORPUSCULAR HEMOGLOBIN 35 pg (27-31); MEAN CORPUSCULAR VOLUME 102 fL (79.0-98.0); MONOCYTES % (AUTO) 7.3 % (1.7-9.3); NEUTROPHILS # (AUTO) 1.4 K/uL (1.8-7.7); NEUTROPHILS % (AUTO) 58.1 % (40.0-70.0); RED BLOOD CELL COUNT(AUTO) 2.09 MIL/uL (4.2-6.2); RED CELL DISTRIBUTION WIDTH 12.9 % (9.0-15.0); WHITE BLOOD COUNT (AUTO) 2.4 K/uL (4.8-10.8)
[2017-02-05 08:35] LABS: CALCIUM 8.2 mg/dL (8.4-11.0); CREATININE 1.09 mg/dL (0.55-1.30); HEMATOCRIT 21.2 % (36-48); POTASSIUM 3.5 mmol/L (3.5-5.1)
[2017-02-05 08:45] LABS: ALBUMIN 2.4 g/dL (3.4-4.8); TOTAL BILIRUBIN 12.7 mg/dL (0.0-1.0)
[2017-02-05] MEDS: PENTOXIFYLLINE 400 MG TABLET.SA (TRENtal) PO SCH ×3 (08:53→17:13)
[2017-02-05] MEDS: FOLIC ACID 1 MG TABLET PO SCH (08:53)
[2017-02-05] MEDS: chlordiazePOXIDE HCL 25 MG CAPSULE PO SCH ×3 (08:53→20:45)
[2017-02-05] MEDS: PANTOPRAZOLE SODIUM 40 MG/VIAL (PROTONIX) IVP SCH (08:53)
[2017-02-05] MEDS: THIAMINE HCL 100 MG TABLET PO SCH (08:53)
[2017-02-05] MEDS: FERROUS SULFATE 325 MG TABLET.DR PO SCH (08:54)
[2017-02-05] MEDS ORDERED: FERROUS SULFATE 325 MG TABLET.DR PO SCH ×2 (09:00)
[2017-02-05 09:19] LABS: PLATELET COUNT (AUTO) 40 K/uL (130-430)
[2017-02-05 12:44] VITALS: BP_SYST 116
[2017-02-05] MEDS ORDERED: MAGNESIUM SULFATE 50 ML IV ONE (12:45)
[2017-02-05] MEDS ORDERED: POTASSIUM CHLORIDE 20 MEQ TAB.PRT.SR PO ONE (12:45)
[2017-02-05] MEDS ORDERED: PHYTONADIONE 10 MG in NS 50 ML SUBCUT ONE (13:30)
[2017-02-05] MEDS ORDERED: PHYTONADIONE 10 MG/ML AMP ONE (14:40)
[2017-02-05 16:31] VITALS: BP_SYST 118
[2017-02-05 20:45] VITALS: BP_SYST 112
[2017-02-05] MEDS: METOCLOPRAMIDE HCL 10 MG/2 ML VIAL IVP PRN (20:53)
[2017-02-06 00:24] VITALS: BP_SYST 118
[2017-02-06] MEDS: ONDANSETRON HCL 4 MG/2 ML VIAL IVP PRN ×3 (00:46→13:12)
[2017-02-06] MEDS: MORPHINE 2 MG/ML INJ. SYRINGE IVP PRN ×6 (00:46→21:48)
[2017-02-06] MEDS: KCL 20 mEq in D5NS 1000 mL 1,000 ML IV SCH ×2 (05:15→17:32)
[2017-02-06 05:47] VITALS: BP_SYST 123
[2017-02-06 07:08] LABS: WHITE BLOOD COUNT (AUTO) 2.5 K/uL (4.8-10.8)
[2017-02-06 07:17] LABS: MEAN CORPUSCULAR HEMOGLOBIN 36 pg (27-31); MEAN CORPUSCULAR HGB CONC 35 % (32-36); MEAN CORPUSCULAR VOLUME 103 fL (79.0-98.0); RED CELL DISTRIBUTION WIDTH 13.1 % (9.0-15.0)
[2017-02-06 07:33] LABS: RED BLOOD CELL COUNT(AUTO) 1.94 MIL/uL (4.2-6.2)
[2017-02-06 07:36] LABS: CALCIUM 7.5 mg/dL (8.4-11.0); CREATININE 1.02 mg/dL (0.55-1.30); PLATELET COUNT (AUTO) 42 K/uL (130-430); POTASSIUM 3.8 mmol/L (3.5-5.1)
[2017-02-06 08:00] VITALS: BP_SYST 123
[2017-02-06 09:16] LABS: BASOPHILS % (MANUAL) 0 % (0-2); EOSINOPHILS % (MANUAL) 0 % (0-7); LYMPHOCYTES % (MANUAL) 34 % (20-46); MONOCYTES % (MANUAL) 2 % (0-11)
[2017-02-06] MEDS: PENTOXIFYLLINE 400 MG TABLET.SA (TRENtal) PO SCH ×3 (09:21→17:21)
[2017-02-06] MEDS: PANTOPRAZOLE SODIUM 40 MG/VIAL (PROTONIX) IVP SCH (09:21)
[2017-02-06] MEDS: FOLIC ACID 1 MG TABLET PO SCH (09:21)
[2017-02-06] MEDS: THIAMINE HCL 100 MG TABLET PO SCH (09:21)
[2017-02-06] MEDS: chlordiazePOXIDE HCL 25 MG CAPSULE PO SCH ×3 (09:21→21:46)
[2017-02-06 11:40] LABS: FOLATE (FOLIC ACID) >20.0 ng/mL (>3.0)
[2017-02-06 12:48] VITALS: BP_SYST 122
[2017-02-06 16:08] VITALS: BP_SYST 116
[2017-02-06] MEDS ORDERED: MAGNESIUM SULFATE 3 GM in D5W 100 ML IV ONE (17:30)
[2017-02-06] MEDS ORDERED: BISACODYL 5 MG TABLET.DR (DULCOLAX) PO ONE (18:00)
[2017-02-06] MEDS ORDERED: GOLYTELY / COLYTE SOLUTION 4 LITERS PO ONE (18:00)
[2017-02-06 20:48] VITALS: BP_SYST 119
[2017-02-06] MEDS: METOCLOPRAMIDE HCL 10 MG/2 ML VIAL IVP PRN (21:47)
[2017-02-07] MEDS: LORazepam 2 MG/ML VIAL IVP PRN ×2 (00:20→20:37)
[2017-02-07 00:25] VITALS: BP_SYST 110
[2017-02-07] MEDS: ONDANSETRON HCL 4 MG/2 ML VIAL IVP PRN (01:29)
[2017-02-07] MEDS: KCL 20 mEq in D5NS 1000 mL 1,000 ML IV SCH ×3 (01:29→21:30)
[2017-02-07] MEDS: MORPHINE 2 MG/ML INJ. SYRINGE IVP PRN ×6 (01:30→22:04)
[2017-02-07 02:59] LABS: BASOPHILS % (AUTO) 0.2 % (0.0-2.0); HEMOGLOBIN 8.4 g/dL (12.0-16.0); LYMPHOCYTES # (AUTO) 0.7 K/uL (1.0-5.5); LYMPHOCYTES % (AUTO) 21.7 % (20.5-51.5); MEAN CORPUSCULAR HEMOGLOBIN 33 pg (27-31); MEAN CORPUSCULAR HGB CONC 34 % (32-36); MEAN CORPUSCULAR VOLUME 99 fL (79.0-98.0); MONOCYTES # (AUTO) 0.2 K/uL (0.0-1.0); MONOCYTES % (AUTO) 5.4 % (1.7-9.3); NEUTROPHILS # (AUTO) 2.4 K/uL (1.8-7.7); NEUTROPHILS % (AUTO) 71.7 % (40.0-70.0); RED BLOOD CELL COUNT(AUTO) 2.53 MIL/uL (4.2-6.2); RED CELL DISTRIBUTION WIDTH 15.4 % (9.0-15.0); WHITE BLOOD COUNT (AUTO) 3.4 K/uL (4.8-10.8)
[2017-02-07 03:02] LABS: PLATELET COUNT (AUTO) 46 K/uL (130-430)
[2017-02-07 03:03] LABS: CALCIUM 7.8 mg/dL (8.4-11.0); CREATININE 0.97 mg/dL (0.55-1.30); POTASSIUM 3.6 mmol/L (3.5-5.1)
[2017-02-07 03:10] LABS: ALBUMIN 2.3 g/dL (3.4-4.8); BILIRUBIN,DIRECT 7.1 mg/dL (0.0-0.3); TOTAL BILIRUBIN 9.7 mg/dL (0.0-1.0)
[2017-02-07 04:51] VITALS: BP_SYST 126
[2017-02-07] MEDS: METOCLOPRAMIDE HCL 10 MG/2 ML VIAL IVP PRN ×4 (05:26→21:59)
[2017-02-07] MEDS ORDERED: fentaNYL CITRATE/PF 100 MCG/2 ML AMP ONE (07:07)
[2017-02-07] MEDS ORDERED: SIMETHICONE 40 MG/0.6 ML ML ONE (07:07)
[2017-02-07] MEDS ORDERED: MIDAZOLAM HCL 5 MG/5 ML VIAL ONE (07:07)
[2017-02-07] MEDS ORDERED: DIPHENHYDRAMINE INJ 50 MG/ML VIAL ONE (07:08)
[2017-02-07 08:35] VITALS: BP_SYST 125
[2017-02-07] MEDS: FOLIC ACID 1 MG TABLET PO SCH (10:11)
[2017-02-07] MEDS: PENTOXIFYLLINE 400 MG TABLET.SA (TRENtal) PO SCH ×3 (10:11→17:10)
[2017-02-07] MEDS: PANTOPRAZOLE SODIUM 40 MG/VIAL (PROTONIX) IVP SCH (10:11)
[2017-02-07] MEDS: chlordiazePOXIDE HCL 25 MG CAPSULE PO SCH ×3 (10:11→20:32)
[2017-02-07] MEDS: THIAMINE HCL 100 MG TABLET PO SCH (10:11)
[2017-02-07] MEDS ORDERED: MAGNESIUM SULFATE 4 GM in D5W 250 ML IV ONE (11:30)
[2017-02-07 12:00] VITALS: BP_SYST 124
[2017-02-07 15:35] VITALS: BP_SYST 119
[2017-02-07 17:10] LABS: HAPTOGLOBIN 15 mg/dL (34-200)
[2017-02-08] VITALS: BP_SYST 113
[2017-02-08] MEDS: ONDANSETRON HCL 4 MG/2 ML VIAL IVP PRN ×2 (02:24→22:41)
[2017-02-08] MEDS: MORPHINE 2 MG/ML INJ. SYRINGE IVP PRN ×6 (02:25→22:38)
[2017-02-08] MEDS: METOCLOPRAMIDE HCL 10 MG/2 ML VIAL IVP PRN ×3 (06:05→18:47)
[2017-02-08 08:09] VITALS: BP_SYST 124
[2017-02-08 08:41] LABS: CALCIUM 7.7 mg/dL (8.4-11.0); CREATININE 1.07 mg/dL (0.55-1.30); PHOSPHORUS 1.9 mg/dL (2.7-4.5); POTASSIUM 3.2 mmol/L (3.5-5.1)
[2017-02-08] MEDS: PENTOXIFYLLINE 400 MG TABLET.SA (TRENtal) PO SCH ×3 (09:16→18:47)
[2017-02-08] MEDS: chlordiazePOXIDE HCL 25 MG CAPSULE PO SCH ×3 (09:16→20:10)
[2017-02-08] MEDS: THIAMINE HCL 100 MG TABLET PO SCH (09:16)
[2017-02-08] MEDS: FOLIC ACID 1 MG TABLET PO SCH (09:16)
[2017-02-08] MEDS: PANTOPRAZOLE SODIUM 40 MG/VIAL (PROTONIX) IVP SCH (09:16)
[2017-02-08] MEDS: LORazepam 2 MG/ML VIAL IVP PRN ×2 (09:17→20:13)
[2017-02-08] MEDS: KCL 20 mEq in D5NS 1000 mL 1,000 ML IV SCH ×2 (09:17→20:57)
[2017-02-08 12:00] VITALS: BP_SYST 132
[2017-02-08] MEDS ORDERED: COMMUNICATION ORDER XX ONE (12:15)
[2017-02-08] MEDS ORDERED: [UNRECOGNIZED DRUG - OTHER] IV ONE ×4 (13:30)
[2017-02-08] MEDS ORDERED: K PHOS IV ONE ×4 (13:30)
[2017-02-08] MEDS ORDERED: MAGNESIUM SULFATE IV ONE ×4 (13:30)
[2017-02-08 16:00] VITALS: BP_SYST 142
[2017-02-08 19:00] VITALS: BP_SYST 123
[2017-02-08 23:32] VITALS: BP_SYST 126
[2017-02-09] MEDS: LORazepam 2 MG/ML VIAL IVP PRN ×2 (00:18→10:16)
[2017-02-09] MEDS: ACETAMINOPHEN 325 MG TABLET PO PRN ×2 (01:05→14:51)
[2017-02-09] MEDS: MORPHINE 2 MG/ML INJ. SYRINGE IVP PRN ×4 (02:43→16:53)
[2017-02-09] MEDS: METOCLOPRAMIDE HCL 10 MG/2 ML VIAL IVP PRN (02:48)
[2017-02-09 04:12] VITALS: BP_SYST 113
[2017-02-09] MEDS: KCL 20 mEq in D5NS 1000 mL 1,000 ML IV SCH ×2 (06:06→16:00)
[2017-02-09] MEDS: ONDANSETRON HCL 4 MG/2 ML VIAL IVP PRN ×2 (06:39→12:52)
[2017-02-09 07:34] LABS: CALCIUM 7.9 mg/dL (8.4-11.0); CREATININE 1.04 mg/dL (0.55-1.30); PHOSPHORUS 2.9 mg/dL (2.7-4.5)
[2017-02-09 07:38] LABS: POTASSIUM 2.8 mmol/L (3.5-5.1)
[2017-02-09 07:42] LABS: BASOPHILS % (AUTO) 0.2 % (0.0-2.0); EOSINOPHILS # (AUTO) 0.1 K/uL (0.0-0.4); EOSINOPHILS % (AUTO) 1.6 % (0.0-4.0); HEMATOCRIT 29.7 % (36-48); HEMOGLOBIN 10.1 g/dL (12.0-16.0); LYMPHOCYTES # (AUTO) 0.8 K/uL (1.0-5.5); LYMPHOCYTES % (AUTO) 23.5 % (20.5-51.5); MEAN CORPUSCULAR HEMOGLOBIN 35 pg (27-31); MEAN CORPUSCULAR HGB CONC 34 % (32-36); MEAN CORPUSCULAR VOLUME 102 fL (79.0-98.0); MONOCYTES # (AUTO) 0.2 K/uL (0.0-1.0); MONOCYTES % (AUTO) 6.5 % (1.7-9.3); NEUTROPHILS # (AUTO) 2.2 K/uL (1.8-7.7); NEUTROPHILS % (AUTO) 68.2 % (40.0-70.0); RED BLOOD CELL COUNT(AUTO) 2.92 MIL/uL (4.2-6.2); RED CELL DISTRIBUTION WIDTH 16.7 % (9.0-15.0); WHITE BLOOD COUNT (AUTO) 3.3 K/uL (4.8-10.8)
[2017-02-09 08:00] VITALS: BP_SYST 115
[2017-02-09] MEDS: THIAMINE HCL 100 MG TABLET PO SCH (09:17)
[2017-02-09] MEDS: FOLIC ACID 1 MG TABLET PO SCH (09:17)
[2017-02-09] MEDS: chlordiazePOXIDE HCL 25 MG CAPSULE PO SCH ×2 (09:17→14:50)
[2017-02-09] MEDS: POTASSIUM CHLORIDE 40 MEQ in D5W 250 ML IV SCH ×2 (09:17→12:53)
[2017-02-09] MEDS: PENTOXIFYLLINE 400 MG TABLET.SA (TRENtal) PO SCH ×3 (09:17→16:53)
[2017-02-09] MEDS: PANTOPRAZOLE SODIUM 40 MG/VIAL (PROTONIX) IVP SCH (09:17)
[2017-02-09 10:05] LABS: PLATELET COUNT (AUTO) 63 K/uL (130-430)
[2017-02-09 12:10] VITALS: BP_SYST 120
[2017-02-09] MEDS ORDERED: LOPERAMIDE HCL 2 MG CAPSULE PO ONE (15:30)
[2017-02-09] MEDS ORDERED: POTASSIUM CHLORIDE 10 MEQ TAB.PRT.SR PO ONE (15:45)
[2017-02-09 16:11] VITALS: BP_SYST 125
[2017-02-09 16:30] VITALS: BP_SYST 125
[2017-02-09] MEDS ORDERED: PRO40 PO (16:40)
[2017-02-09] MEDS ORDERED: LIB10 PO (16:40)
[2017-02-09] MEDS ORDERED: PENT400T2 PO (16:42)
[2017-02-09] MEDS ORDERED: FOLI-43 PO (16:43)
[2017-02-09] MEDS ORDERED: HYDR-1189 PO (16:43)
== END 2017-02-09 17:45 | disposition home or self-care (01) | DRG 280 ==
LOC: SED 05:37 → STU 09:21
PROVIDERS: ADMIT Internal Medicine; ATTEND Internal Medicine
PROC: 0DJ08ZZ Inspection of Upper Intestinal Tract, Via Natural or Artificial Opening Endoscopic (ICD-10-PCS; principal; 2017-02-03)
PROC: 0DJD8ZZ Inspection of Lower Intestinal Tract, Via Natural or Artificial Opening Endoscopic (ICD-10-PCS; 2017-02-03)
PROC: 30233N1 Transfusion of Nonautologous Red Blood Cells into Peripheral Vein, Percutaneous Approach (ICD-10-PCS; 2017-02-06)
DX: K70.10 Alcoholic hepatitis without ascites (principal); K70.30 Alcoholic cirrhosis of liver without ascites; E43 Unspecified severe protein-calorie malnutrition; D61.818 Other pancytopenia; K85.90 Acute pancreatitis without necrosis or infection, unspecified; K76.6 Portal hypertension; E83.42 Hypomagnesemia; G89.4 Chronic pain syndrome; F32.9 Major depressive disorder, single episode, unspecified; Y90.7 Blood alcohol level of 200-239 mg/100 ml; E87.6 Hypokalemia; F10.239 Alcohol dependence with withdrawal, unspecified; Z68.1 Body mass index [BMI] 19.9 or less, adult; E78.00 Pure hypercholesterolemia, unspecified; K31.89 Other diseases of stomach and duodenum; J45.909 Unspecified asthma, uncomplicated; K44.9 Diaphragmatic hernia without obstruction or gangrene; S00.83XA Contusion of other part of head, initial encounter; X58.XXXA Exposure to other specified factors, initial encounter; Y93.89 Activity, other specified; Y92.89 Other specified places as the place of occurrence of the external cause; Y99.8 Other external cause status; Z90.49 Acquired absence of other specified parts of digestive tract; Z79.899 Other long term (current) drug therapy
CPT/HCPCS: 36415; 43235; 45378; 76700-TC; 80048; 80053; 80074; 80076; 80307; 81003; 81025; 82140-TC; 82150-TC; 82607; 82746; 83010; 83540-TC; 83550-TC; 83615-TC; 83690-TC; 83735-TC; 84100-TC; 84132-TC; 84702-TC; 84703; 85007; 85018-TC; 85025; 85027; 85044-TC; 85610-TC; 85730-TC; 86880-TC; 86886; 86900; 86901; 86920; 87230-TC; 96361; 96374; 96375; 97116-GP; 97530-GP; 99285; C9113; G0480; G0481; G0482; J1200; J2060; J2250; J2270; J2405; J2550; J2765; J3010; J3411; J3430; J3475; J3480; J3490; J7030; J7040; J7050; J7060; P9021

== ENCOUNTER 2017-04-09 13:35 | Inpatient (IN) | payer MEDICAID ==
[~2017-04-09] VITALS: Ht 157.5 cm; Wt 61.7 kg
[~2017-04-09 13:35] MED LIST changes: -FAMO20TA8 PO; +FURO80TA86 PO; +HYDR-1189 PO; +LIB10 PO; +MET10 PO; -NITR-85 PO; +PENT400T2 PO; +PRO40 PO; +SPIR50TA26 PO; -THIA100T13 PO
[2017-04-09 13:50] VITALS: BP_SYST 124
[2017-04-09] MEDS ORDERED: NACL 0.9% 1,000 ML IV ONE (13:58)
[2017-04-09] MEDS ORDERED: ONDANSETRON HCL 4 MG/2 ML VIAL IVP ONE (14:00)
[2017-04-09] MEDS ORDERED: MORPHINE 2 MG/ML INJ. SYRINGE IVP ONE ×2 (14:00→17:15)
[2017-04-09] MEDS ORDERED: SPIR25TA PO (14:20)
[2017-04-09] MEDS ORDERED: FURO80TA86 PO (14:20)
[2017-04-09] MEDS ORDERED: FERR159T2 PO (14:20)
[2017-04-09] MEDS ORDERED: OXYC-130 PO (14:20)
[2017-04-09 14:28] LABS: BASOPHILS % (AUTO) 0.3 % (0.0-2.0); EOSINOPHILS % (AUTO) 0.6 % (0.0-4.0); HEMATOCRIT 34.7 % (36-48); HEMOGLOBIN 11.3 g/dL (12.0-16.0); LYMPHOCYTES # (AUTO) 1.8 K/uL (1.0-5.5); LYMPHOCYTES % (AUTO) 26.9 % (20.5-51.5); MEAN CORPUSCULAR HEMOGLOBIN 32 pg (27-31); MEAN CORPUSCULAR HGB CONC 33 % (32-36); MEAN CORPUSCULAR VOLUME 99 fL (79.0-98.0); MONOCYTES # (AUTO) 0.5 K/uL (0.0-1.0); MONOCYTES % (AUTO) 7.5 % (1.7-9.3); NEUTROPHILS # (AUTO) 4.4 K/uL (1.8-7.7); NEUTROPHILS % (AUTO) 64.7 % (40.0-70.0); PLATELET COUNT (AUTO) 126 K/uL (130-430); RED BLOOD CELL COUNT(AUTO) 3.51 MIL/uL (4.2-6.2); RED CELL DISTRIBUTION WIDTH 16.8 % (9.0-15.0); WHITE BLOOD COUNT (AUTO) 6.7 K/uL (4.8-10.8)
[2017-04-09 14:40] LABS: INR 1.4 (0.8-1.2); PROTHROMBIN TIME 13.9 SECS (9.5-12.5)
[2017-04-09 14:53] LABS: ALBUMIN 3.1 g/dL (3.4-4.8); CALCIUM 8.1 mg/dL (8.4-11.0); CREATININE 0.81 mg/dL (0.55-1.30); TOTAL BILIRUBIN 4.1 mg/dL (0.0-1.0)
[2017-04-09 14:57] LABS: POTASSIUM 2.7 mmol/L (3.5-5.1)
[2017-04-09] MEDS ORDERED: POTASSIUM CHLORIDE 20 MEQ TAB.PRT.SR PO ONE (15:30)
[2017-04-09] MEDS ORDERED: CALCIUM GLUCONATE 1 GM/10 ML VIAL IVP ONE (15:30)
[2017-04-09] MEDS ORDERED: SODIUM POLYSTYRENE SULFONATE 15 GM/60 ML UDBTL RC ONE (15:30)
[2017-04-09 16:15] LABS: BILIRUBIN,URINE NEGATIVE (NEGATIVE); CLARITY/URINE HAZY (CLEAR); COLOR,URINE YELLOW (YELLOW); GLUCOSE,URINE NEGATIVE (NEGATIVE); KETONES,URINE NEGATIVE (NEGATIVE); LEUKOCYTE ESTERASE ,URINE NEGATIVE (NEGATIVE); NITRITE, URINE NEGATIVE (NEGATIVE); PH,URINE 7.5 (5.0-8.0); PROTEIN URINE NEGATIVE (NEGATIVE); UROBILINOGEN,URINE 0.2 (0.2-1.0)
[2017-04-09 16:33] LABS: BLOOD, URINE TRACE (NEGATIVE)
[2017-04-09 16:35] LABS: BACTERIA,URINE FEW /HPF (None Seen); RBC,URINE 0-3 /HPF (0-3); WBC,URINE 0-3 /HPF (0-3)
[2017-04-09 16:36] LABS: MUCUS,URINE None Seen /LPF (None Seen)
[2017-04-09 17:15] LABS: BARBITURATE, URINE NEGATIVE (NEG <=200); METHAMPHETAMINES SCREEN,URINE NEGATIVE (NEG <=500); URINE AMPHETAMINE NEGATIVE (NEG <=500); URINE METHADONE NEGATIVE (NEG <=200)
[2017-04-09] MEDS ORDERED: PIPERACILLIN/TAZO 3.375 GM in NS 50 ML IV ONE (17:15)
[2017-04-09] MEDS ORDERED: VANCOMYCIN HCL 1,000 MG in NS 250 ML IV ONE (17:15)
[2017-04-09 17:16] LABS: BENZODIAZEPINE, URINE POSITIVE (NEG <=150); CANNABINOID, URINE NEGATIVE (NEG <=50); COCAINE, URINE NEGATIVE (NEG <=150); OPIATE, URINE POSITIVE (NEG <=100); PHENCYCLIDINE SCREEN,URINE NEGATIVE (NEG <=25); URINE OXYCODONE SCREEN NEGATIVE (NEG <=100)
[2017-04-09 17:17] LABS: UR TRICYCLIC ANTIDEPRESSANTS NEGATIVE (NEG <=300); URINE PROPOXYPHENE SCREEN NEGATIVE (NEG <=300)
[2017-04-09] MEDS ORDERED: VANCOMYCIN HCL 1000 MG/VIAL IV ONE (17:17)
[2017-04-09] MEDS ORDERED: chlordiazePOXIDE HCL 25 MG CAPSULE PO PRN (17:45)
[2017-04-09] MEDS ORDERED: KETOROLAC TROMETHAMINE 30 MG VIAL IVP PRN (17:45)
[2017-04-09] MEDS ORDERED: LORazepam 2 MG/ML VIAL IVP PRN (17:45)
[2017-04-09] MEDS ORDERED: NACL 0.9% 1,000 ML IV SCH (17:45)
[2017-04-09] MEDS ORDERED: PIPERACILLIN/TAZOBACTAM 3.375 GM/VIAL (ZOSYN) IV ONE (18:26)
[2017-04-09] MEDS ORDERED: FOLIC ACID 1 MG, THIAMINE HCL 100 MG, MAGNESIUM SULFATE 1 GM, MVI 10 ML in NACL 0.9% 1,... IV ONE (19:00)
[2017-04-09 19:18] VITALS: BP_SYST 119
[2017-04-09] MEDS: MORPHINE 2 MG/ML INJ. SYRINGE IVP PRN (22:51)
[2017-04-10] MEDS: NACL 0.9% 1,000 ML IV SCH ×2 (00:28→11:47)
[2017-04-10 00:50] VITALS: BP_SYST 115
[2017-04-10] MEDS: ONDANSETRON HCL 4 MG/2 ML VIAL IVP PRN ×5 (03:08→23:40)
[2017-04-10] MEDS: MORPHINE 2 MG/ML INJ. SYRINGE IVP PRN ×5 (03:18→20:06)
[2017-04-10 05:09] VITALS: BP_SYST 121
[2017-04-10 06:42] LABS: HEMATOCRIT 30.9 % (36-48); HEMOGLOBIN 10.1 g/dL (12.0-16.0); MEAN CORPUSCULAR HEMOGLOBIN 33 pg (27-31); MEAN CORPUSCULAR HGB CONC 33 % (32-36); MEAN CORPUSCULAR VOLUME 99 fL (79.0-98.0); PLATELET COUNT (AUTO) 64 K/uL (130-430); RED BLOOD CELL COUNT(AUTO) 3.11 MIL/uL (4.2-6.2); RED CELL DISTRIBUTION WIDTH 16.6 % (9.0-15.0); WHITE BLOOD COUNT (AUTO) 3.3 K/uL (4.8-10.8)
[2017-04-10 07:01] LABS: ALBUMIN 2.2 g/dL (3.4-4.8); CREATININE 0.69 mg/dL (0.55-1.30); POTASSIUM 3.2 mmol/L (3.5-5.1); TOTAL BILIRUBIN 4.2 mg/dL (0.0-1.0)
[2017-04-10 08:00] VITALS: BP_SYST 117
[2017-04-10 08:04] LABS: BASOPHILS % (MANUAL) 0 % (0-2); EOSINOPHILS % (MANUAL) 0 % (0-7); LYMPHOCYTES % (MANUAL) 15 % (20-46); MONOCYTES % (MANUAL) 5 % (0-11)
[2017-04-10] MEDS ORDERED: POTASSIUM CHLORIDE 20 MEQ TAB.PRT.SR PO ONE (11:30)
[2017-04-10] MEDS ORDERED: chlordiazePOXIDE HCL 25 MG CAPSULE PO PRN (11:45)
[2017-04-10 12:00] VITALS: BP_SYST 120
[2017-04-10] MEDS: LACTULOSE 20 GM/30 ML UDC PO SCH ×3 (14:28→20:07)
[2017-04-10 16:00] VITALS: BP_SYST 132
[2017-04-10] MEDS ORDERED: ACETAMINOPHEN 500 MG TABLET PO PRN (22:45)
[2017-04-10] MEDS ORDERED: PIPERACILLIN/TAZOBACTAM 4.5 GM/VIAL (ZOSYN) IV ONE (22:54)
[2017-04-10] MEDS ORDERED: PIPERACILLIN/TAZO 4.5GM/DEX-IS 100 ML IV ONE (23:15)
[2017-04-11] MEDS ORDERED: cefTRIAXone 1 GM in D5W 50 ML IV ONE ×2
[2017-04-11 00:03] VITALS: BP_SYST 135
[2017-04-11] MEDS ORDERED: PIPERACILLIN/TAZOBACTAM 4.5 GM/VIAL (ZOSYN) IV ONE (00:22)
[2017-04-11] MEDS ORDERED: cefTRIAXone 1 GM IVPB PREMIX 50 ML IV ONE (00:22)
[2017-04-11] MEDS: NACL 0.9% 1,000 ML IV SCH ×2 (01:00→14:39)
[2017-04-11] MEDS: MORPHINE 2 MG/ML INJ. SYRINGE IVP PRN ×4 (01:06→15:47)
[2017-04-11 04:41] VITALS: BP_SYST 116
[2017-04-11] MEDS: ONDANSETRON HCL 4 MG/2 ML VIAL IVP PRN ×2 (05:58→13:30)
[2017-04-11] MEDS ORDERED: PIPERACILLIN/TAZO 4.5GM/DEX-IS 100 ML IV SCH (06:00)
[2017-04-11 08:00] VITALS: BP_SYST 102
[2017-04-11] MEDS ORDERED: FUROSEMIDE 40 MG TABLET PO SCH (09:00)
[2017-04-11] MEDS ORDERED: SPIRONOLACTONE 50 MG TABLET (ALDACTONE) PO SCH (09:00)
[2017-04-11] MEDS: LACTULOSE 20 GM/30 ML UDC PO SCH ×2 (09:28→14:43)
[2017-04-11 12:12] VITALS: BP_SYST 126
[2017-04-11 16:01] VITALS: BP_SYST 114
[2017-04-11 17:38] VITALS: BP_SYST 150
[2017-04-11] MEDS ORDERED: cefTRIAXone 1 GM in D5W 50 ML IV SCH (21:00)
== END 2017-04-11 18:07 | disposition home or self-care (01) | DRG 280 ==
LOC: SED 13:35 → STU 17:45
PROVIDERS: ADMIT Family Medicine; ATTEND Family Medicine
DX: K70.31 Alcoholic cirrhosis of liver with ascites (principal); K70.11 Alcoholic hepatitis with ascites; D61.818 Other pancytopenia; K65.2 Spontaneous bacterial peritonitis; M34.9 Systemic sclerosis, unspecified; F10.129 Alcohol abuse with intoxication, unspecified; F41.9 Anxiety disorder, unspecified; Y90.8 Blood alcohol level of 240 mg/100 ml or more; G89.29 Other chronic pain; Z79.899 Other long term (current) drug therapy
CPT/HCPCS: 36415; 71010; 76700-TC; 80053; 80307; 81000-TC; 81025; 82140-TC; 83690-TC; 85007; 85025; 85027; 85610-TC; 85730-TC; 87040-TC; 87081; 87086; 93005; 96361; 96365; 96368; 96375; 99285; G0482; J0696; J1885; J2270; J2405; J2543; J3370; J3411; J3475; J3490; J7030; J7050; J7060

== ENCOUNTER 2017-04-26 09:39 | Emergency (ER) | payer MEDICAID ==
[~2017-04-26] VITALS: Ht 157.5 cm; Wt 59.0 kg
[~2017-04-26 09:39] MED LIST changes: +FERR159T2 PO; +OXYC-130 PO; +SPIR25TA PO
[2017-04-26 09:43] VITALS: BP_SYST 147
[2017-04-26] MEDS ORDERED: NACL 0.9% 1,000 ML IV ONE (09:53)
[2017-04-26] MEDS ORDERED: ONDANSETRON HCL 4 MG/2 ML VIAL IVP ONE ×2 (10:00→14:30)
[2017-04-26 10:22] LABS: BASOPHILS # (AUTO) 0.1 K/uL (0.0-0.2); BASOPHILS % (AUTO) 1.8 % (0.0-2.0); EOSINOPHILS % (AUTO) 0.1 % (0.0-4.0); HEMATOCRIT 31.7 % (36-48); HEMOGLOBIN 10.9 g/dL (12.0-16.0); LYMPHOCYTES # (AUTO) 0.5 K/uL (1.0-5.5); LYMPHOCYTES % (AUTO) 13.4 % (20.5-51.5); MEAN CORPUSCULAR HEMOGLOBIN 32 pg (27-31); MEAN CORPUSCULAR HGB CONC 34 % (32-36); MEAN CORPUSCULAR VOLUME 95 fL (79.0-98.0); MONOCYTES # (AUTO) 0.2 K/uL (0.0-1.0); NEUTROPHILS # (AUTO) 3.2 K/uL (1.8-7.7); NEUTROPHILS % (AUTO) 80.7 % (40.0-70.0); PLATELET COUNT (AUTO) 89 K/uL (130-430); RED BLOOD CELL COUNT(AUTO) 3.35 MIL/uL (4.2-6.2)
[2017-04-26] MEDS ORDERED: FOLIC ACID 1 MG, THIAMINE HCL 100 MG, MAGNESIUM SULFATE 1 GM, MVI 10 ML in NACL 0.9% 1,... IV ONE (10:30)
[2017-04-26] MEDS ORDERED: KETOROLAC TROMETHAMINE 30 MG VIAL IVP ONE (10:30)
[2017-04-26 11:07] LABS: CALCIUM 8.4 mg/dL (8.4-11.0); CREATININE 0.74 mg/dL (0.55-1.30); POTASSIUM 3.6 mmol/L (3.5-5.1)
[2017-04-26 11:11] LABS: ALBUMIN 3.2 g/dL (3.4-4.8); INR 1.5 (0.8-1.2)
[2017-04-26 11:14] LABS: PROTHROMBIN TIME 15.1 SECS (9.5-12.5)
[2017-04-26 13:25] LABS: BILIRUBIN,URINE 2+ (NEGATIVE); BLOOD, URINE 1+ (NEGATIVE); CLARITY/URINE SL CLOUDY (CLEAR); COLOR,URINE AMBER (YELLOW); GLUCOSE,URINE TRACE (NEGATIVE); KETONES,URINE 1+ (NEGATIVE); LEUKOCYTE ESTERASE ,URINE NEGATIVE (NEGATIVE); NITRITE, URINE POSITIVE (NEGATIVE); PH,URINE 6.5 (5.0-8.0); PROTEIN URINE 1+ (NEGATIVE)
[2017-04-26 13:29] LABS: UROBILINOGEN,URINE >=8 (0.2-1.0)
[2017-04-26 13:39] LABS: BARBITURATE, URINE NEGATIVE (NEG <=200); BENZODIAZEPINE, URINE POSITIVE (NEG <=150); CANNABINOID, URINE POSITIVE (NEG <=50); COCAINE, URINE NEGATIVE (NEG <=150); METHAMPHETAMINES SCREEN,URINE NEGATIVE (NEG <=500); OPIATE, URINE NEGATIVE (NEG <=100); PHENCYCLIDINE SCREEN,URINE NEGATIVE (NEG <=25); UR TRICYCLIC ANTIDEPRESSANTS NEGATIVE (NEG <=300); URINE AMPHETAMINE NEGATIVE (NEG <=500); URINE METHADONE NEGATIVE (NEG <=200); URINE OXYCODONE SCREEN NEGATIVE (NEG <=100); URINE PROPOXYPHENE SCREEN NEGATIVE (NEG <=300)
[2017-04-26 13:58] LABS: WBC,URINE 0-3 /HPF (0-3)
[2017-04-26 13:59] LABS: BACTERIA,URINE MODERATE /HPF (None Seen); MUCUS,URINE 1+ /LPF (None Seen)
[2017-04-26] MEDS ORDERED: HYDROmorphone 1 MG INJ. 1 MG/ML AMPUL IVP ONE (14:15)
[2017-04-26 15:00] VITALS: BP_SYST 137
== END 2017-04-26 15:00 | disposition home or self-care (01) ==
LOC: SED 09:39
DX: S30.0XXA Contusion of lower back and pelvis, initial encounter (principal); S50.11XA Contusion of right forearm, initial encounter; K29.20 Alcoholic gastritis without bleeding; F10.129 Alcohol abuse with intoxication, unspecified; J45.909 Unspecified asthma, uncomplicated; Z90.49 Acquired absence of other specified parts of digestive tract; Z79.899 Other long term (current) drug therapy; Y04.0XXA Assault by unarmed brawl or fight, initial encounter; Y93.89 Activity, other specified; Y92.89 Other specified places as the place of occurrence of the external cause; Y99.8 Other external cause status
CPT/HCPCS: 36415; 74176; 80053; 80307; 81000; 81025; 82140; 82150; 83690; 85025; 85610; 85730; 87086; 96361; 96365; 96366; 96375; 96376; 99285; G0482; J1170; J1885; J2405; J3411; J3475; J3490; J7030

== ENCOUNTER 2017-05-06 12:46 | Emergency (ER) | payer MEDICAID ==
[~2017-05-06] VITALS: Ht 157.5 cm; Wt 54.4 kg
[2017-05-06 12:50] VITALS: BP_SYST 158
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
--- NOTE | 2017-05-06 16:00 | NUR ---
Ambulatory to bed 6
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
--- NOTE | 2017-05-06 16:45 | NUR ---
ER Dr. Lujan at bedside examining patient.
[2017-05-06] MEDS ORDERED: NACL 0.9% 1,000 ML IV ONE (17:14)
[2017-05-06] MEDS ORDERED: MORPHINE 4 MG/ML INJ. SYRINGE IVP ONE ×2 (17:15→18:30)
[2017-05-06] MEDS ORDERED: ONDANSETRON HCL 4 MG/2 ML VIAL IVP ONE (17:15)
--- NOTE | 2017-05-06 17:41 | NUR ---
Medications were given, pt tolerated well. No adverse reaction, will continue to monitor.
[2017-05-06 17:42] LABS: BASOPHILS % (AUTO) 0.7 % (0.0-2.0); EOSINOPHILS % (AUTO) 0.2 % (0.0-4.0); HEMATOCRIT 34.5 % (36-48); HEMOGLOBIN 11.6 g/dL (12.0-16.0); LYMPHOCYTES # (AUTO) 1.8 K/uL (1.0-5.5); LYMPHOCYTES % (AUTO) 29.3 % (20.5-51.5); MEAN CORPUSCULAR HEMOGLOBIN 32 pg (27-31); MEAN CORPUSCULAR HGB CONC 34 % (32-36); MEAN CORPUSCULAR VOLUME 96 fL (79.0-98.0); MONOCYTES # (AUTO) 0.3 K/uL (0.0-1.0); MONOCYTES % (AUTO) 5.3 % (1.7-9.3); NEUTROPHILS # (AUTO) 4.1 K/uL (1.8-7.7); NEUTROPHILS % (AUTO) 64.5 % (40.0-70.0); RED BLOOD CELL COUNT(AUTO) 3.59 MIL/uL (4.2-6.2); RED CELL DISTRIBUTION WIDTH 15.8 % (9.0-15.0); WHITE BLOOD COUNT (AUTO) 6.2 K/uL (4.8-10.8)
[2017-05-06 17:57] LABS: PLATELET COUNT (AUTO) 75 K/uL (130-430)
[2017-05-06 18:01] LABS: CALCIUM 7.8 mg/dL (8.4-11.0); CREATININE 0.66 mg/dL (0.55-1.30); POTASSIUM 3.1 mmol/L (3.5-5.1)
[2017-05-06 18:05] LABS: ALBUMIN 3.8 g/dL (3.4-4.8); TOTAL BILIRUBIN 3.5 mg/dL (0.0-1.0)
--- NOTE | 2017-05-06 18:42 | NUR ---
Medication was given, pt tolerated well. No adverse reaction, will continue to monitor.
[2017-05-06] MEDS ORDERED: IOHEXOL 100 ML IV ONE (18:47)
--- NOTE | 2017-05-06 18:54 | NUR ---
Pt went to radiology in stable condition.
--- NOTE | 2017-05-06 19:10 | NUR ---
Patient AAO x4, sitting in bed, no acute distress noted. Will continue to monitor.
--- NOTE | 2017-05-06 19:10 | NUR ---
Paul MCNEAL at bedside, getting report from patient.
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
[2017-05-06 20:06] VITALS: BP_SYST 130
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
== END 2017-05-06 20:00 | disposition home or self-care (01) ==
LOC: SED 12:46
DX: S06.0X9A Concussion with loss of consciousness of unspecified duration, initial encounter (principal); S13.4XXA Sprain of ligaments of cervical spine, initial encounter; S30.1XXA Contusion of abdominal wall, initial encounter; J45.909 Unspecified asthma, uncomplicated; Z90.49 Acquired absence of other specified parts of digestive tract; Z79.899 Other long term (current) drug therapy; Y04.2XXA Assault by strike against or bumped into by another person, initial encounter; Y93.89 Activity, other specified; Y92.89 Other specified places as the place of occurrence of the external cause; Y99.8 Other external cause status
CPT/HCPCS: 36415; 70450; 72125; 74177; 80053; 83690; 84703; 85025; 96361; 96374; 96375; 96376; 99285; J2270; J2405; J7030; Q9967